=== PATIENT | female | born 1985 | race Caucasian/White ===

== ENCOUNTER → 2016-08-16 | Outpatient (CLI) | payer OTHER ==
--- NOTE | 2016-08-16 14:39 | XR ---
Cervical spine HISTORY: Neck pain 5 views of the cervical spine Correlation to prior spine 02 March 2015 Is no significant foraminal encroachment. Loss of normal lordosis may be due to muscle spasm. Cervica l vertebral bodies show preserved height and bone mineralization. Anterolisthesis grade 1 C2-3, C3-4 thought likely to be physiologic. Disc spaces and prevertebral soft tissues are normal. IMPRESSION: Loss of cervical lordosis.
== END | disposition home or self-care (01) ==
LOC: RADXRMAIN 14:00
PROVIDERS: ATTEND Family Medicine
DX: M43.8X2 Other specified deforming dorsopathies, cervical region (principal); M54.2 Cervicalgia
CPT/HCPCS: 72050

== ENCOUNTER → 2017-05-23 | Outpatient (CLI) | payer OTHER ==
--- NOTE | 2017-05-23 18:43 | EEG ---
ELECTROENCEPHALOGRAM REPORT DATE OF SERVICE: 05/23/2017. REASON FOR TESTING: Syncope. DESCRIPTION OF THE PROCEDURE: This EEG was performed using a 21 channel digital electroencephalograph, following international 10-20 system. DESCRIPTION OF THE RECORDING: From the beginning of the tracing, with patient's eyes closed, the background rhythm was mostly consisting of 9 Hz alpha frequency in the posterior occipital leads. No obvious asymmetry is seen. Photic stimulation was performed with a good driving response seen. No pathological waves were elicited. Rare movement artifacts are seen. Hyperventilation was not performed. Rare muscle artifacts are seen. The patient remains awake throughout the tracing. Rare sharp wave activity is seen. Her EKG lead showed a regular rate and rhythm. INTERPRETATION: This awake EEG is abnormal due to occasional sharp wave activity seen. No obvious generalized epileptiform discharges are seen. This could be consistent with a reduced seizure threshold. Clinical correlation is recommended. Thank you, Dr. Barrera for allowing me to participate in the care of your patient. If you have any questions, please feel free to contact me. KORY / IJN: [id number] /
--- NOTE | 2017-05-24 08:12 | USB ---
Reason for exam: clinical finding. History: Took hormonal contraceptives beginning at age 28. Indicated problem(s): pain in both breasts. Physical Findings: Nurse did not find any significant physical abnormalities on exam. US Breast BILAT Right breast ultrasound includes all four quadrants, the retroareolar region and axilla. Finding demonstrates no cystic or solid lesion seen. Left breast ultrasound includes all four quadrants, the retroareolar region and axilla. Finding demonstrates no cystic or solid lesion seen. These results were verbally communicated with the patient and result sheet given to the patient on 05/23/17. ASSESSMENT: Negative, BI-RAD 1 RECOMMENDATION: Routine screening mammogram of both breasts at age 39. Manage on a clinical basis with regard to left pain.
== END | disposition home or self-care (01) ==
LOC: RADECHMAIN 11:46
PROVIDERS: ATTEND Family Medicine
DX: N64.4 Mastodynia (principal); R94.31 Abnormal electrocardiogram [ECG] [EKG]; R00.2 Palpitations; R55 Syncope and collapse
CPT/HCPCS: 93270; 93271; 95816

== ENCOUNTER → 2017-07-27 | Outpatient (CLI) | payer OTHER ==
--- NOTE | 2017-07-27 13:04 | CONS ---
CONSULTATION DATE OF SERVICE: 07/27/2017 This 32-year-old lady has been evaluated in sleep center for significant excessive daytime sleepiness and multiple awakenings from sleep with witnessed episodes of stopped breathing during the sleep. HISTORY OF PRESENT ILLNESS/SLEEP WAKE EVALUATION: Patient usual sleep schedule from 10 p.m. until 6:30 a.m. She does have problem with the falling asleep, taking Xanax at bedtime and it helps her to fall asleep. No TV in bedroom. She usually sleeps on the stomach position with witnessed episodes of stopped breathing during the sleep. Awakenings from sleep with nocturia, restless legs, sweating, dry mouth up to 4 times at night. During the day, patient feels sleepiness. [place] Sleepiness Scale increased to 13. She may take naps up to 3 times a day which she could sleep all day. Usually she does not see any dreams during naps. No history of hypnagogic hallucinations, sleep paralysis, or cataplexy. PAST MEDICAL HISTORY: Positive for anxiety, back problems. PAST SURGICAL HISTORY: Cholecystectomy, tonsillectomy, partial hysterectomy. MEDICATIONS: Tizanidine, Xanax. SOCIAL HISTORY: Negative for smoking. Alcohol consumption occasional. REVIEW OF SYSTEMS: Multiple awakenings from sleep, sleepiness during the day. Patient increased her weight around 60 pounds for the last year. No fevers. No double vision. No recent chest pain. No shortness of breath. No abdominal pain. No bleeding episodes. No blood in urine. No seizure episodes. FAMILY HISTORY: Hypertension, heart problems, fibromyalgia, arthritis, asthma, sinus headaches, lung problems, cancer, diabetes, thyroid problems, restless legs. PHYSICAL EXAM: During physical exam, a lady without distress. VITAL SIGNS: BP 137/88, HR 74, RR 16, height 5 feet 1 inch, weight 206, BMI 37.7, temperature 97.8, oxygen saturation on room air 100%. HEENT: PERRLA, EOMI. Oropharynx, a short distance between soft palate and posterior pharyngeal wall. Small nasal passages. Retrognathia 2 mm. NECK: 13-1/2 inches in circumference. LUNGS: Clear to percussion and to auscultation. Good air exchange. No wheezing or rhonchi. HEART: S1, S2 regular. No murmurs, gallops, or rubs. ABDOMEN: Slightly obese. EXTREMITIES: No clubbing or cyanosis. OBSERVER ELECTRICAL PROSPECTING: Awake, alert, and oriented X3. Cranial nerves 2 to 7 intact. There is no fasciculation or atrophy. noted. No focal deficits observed. IMPRESSION: 1. Snoring witnessed episodes of stopped breathing during the sleep, multiple awakenings from sleep, sleepiness, obstructive sleep apnea-hypopnea syndrome. 2. Sleepiness. [place] Sleepiness Scale increased to 13. Patient takes naps several times a day. Differential diagnosis should include hypersomnia. 3. Obesity, BMI 37.7. Patient increased her weight around 70 pounds for the last year. 4. History of anxiety. 5. Back problems. 6. Status post cholecystectomy. 7. Status post tonsillectomy. 8. Status post partial hysterectomy. PLAN: 1. Polysomnography for evaluation of patient's breathing during sleep. 2. CPAP/BiPAP titration if sleep study confirms obstructive sleep apnea-hypopnea syndrome. 3. Preferable position during sleep on the side. 4. No driving if patient feels any sleepiness. 5. I will see patient for follow up visit to explain results of testing and following plan. 6. Multiple sleep latency test if sleep study will be negative for obstructive sleep apnea-hypopnea syndrome. Thank you very much for referring this patient for consultation. Sincerely, Bart Loomis MD, PhD, FAASM Diplomat of [place] [employer] [employer] [facility] [place] MMODL / DENIAN: [id number] /
== END ==
LOC: SLEEP 11:35
PROVIDERS: ATTEND Internal Medicine
DX: G47.33 Obstructive sleep apnea (adult) (pediatric) (principal); E66.9 Obesity, unspecified; F41.9 Anxiety disorder, unspecified; M79.89 Other specified soft tissue disorders; Z98.890 Other specified postprocedural states; Z90.49 Acquired absence of other specified parts of digestive tract; Z90.710 Acquired absence of both cervix and uterus; Z68.37 Body mass index [BMI] 37.0-37.9, adult; Z79.899 Other long term (current) drug therapy
CPT/HCPCS: 99211

== ENCOUNTER → 2017-08-08 | Outpatient (CLI) | payer OTHER ==
[2017-08-08 09:50] LABS: Basophils % (A) 1 %; Eosinophils # (A) 0.1 k/uL (0-0.7); Eosinophils % (A) 2 %; HCT 39.3 % (34.0-46.0); HGB 13.1 gm/dL (11.4-16.0); Lymphocytes # (A) 1.5 k/uL (1.0-4.8); Lymphocytes % (A) 33 %; MCH 30.1 pg (25.0-35.0); MCHC 33.3 g/dL (31.0-37.0); MCV 90.5 fL (80.0-100.0); Mean Platelet Volume 6.9; Monocytes # (A) 0.2 k/uL (0-1.0); Monocytes % (A) 4 %; Neutrophils # (A) 2.7 k/uL (1.3-7.7); Neutrophils % (A) 59 %; Platelet Count 351 k/uL (150-450); RBC 4.35 m/uL (3.80-5.40); RDW 12.7 % (11.5-15.5); WBC 4.6 k/uL (3.8-10.6)
[2017-08-08 10:17] LABS: ALT 21 U/L (9-52); AST 19 U/L (14-36); Albumin 4.3 g/dL (3.5-5.0); Alkaline Phosphatase 57 U/L (38-126); Anion Gap 12 mmol/L; Blood Urea Nitrogen 10 mg/dL (7-17); C Reactive Protein 5.9 mg/L (<10.0); Calcium 9.4 mg/dL (8.4-10.2); Carbon Dioxide 31 mmol/L (22-30); Chloride 104 mmol/L (98-107); Glucose 80 mg/dL (74-99); Sodium 147 mmol/L (137-145); Total Bilirubin 0.5 mg/dL (0.2-1.3); Total Protein 6.5 g/dL (6.3-8.2)
[2017-08-08 10:49] LABS: Erythrocyte Sedimentation Rate 7 mm/hr (0-20)
[2017-08-08 16:01] LABS: Rheumatoid Factor 7 IU/mL (0-15)
[2017-08-08 17:11] LABS: Vitamin D 25 Hydroxy 11.6 ng/mL (30.0-100.0)
== END | disposition home or self-care (01) ==
LOC: LABWHC1 09:05
PROVIDERS: ATTEND Nurse Practitioner Acute Care
DX: E55.9 Vitamin D deficiency, unspecified (principal); M13.0 Polyarthritis, unspecified
CPT/HCPCS: 36415; 80053; 82306; 82607; 84207; 85025; 85652; 86038; 86140; 86431

== ENCOUNTER → 2017-09-07 | Outpatient (CLI) | payer OTHER ==
--- NOTE | 2017-09-07 12:53 | SFUN ---
SLEEP CENTER FOLLOW UP NOTE DATE OF SERVICE: 09/07/2017. A 32-year-old lady who has been followed in Sleep Center to discuss results of the sleep studies and following plan. I discussed results of sleep studies with patient in detail. Polysomnogram did not show any significant abnormalities of respiration. Apnea-hypopnea index was only 0.4. Lowest oxygen level was 88.3% which is normal. Multiple sleep latency test which was done on the following day consisted from 5 naps. Patient fell asleep on all naps. Mean sleep latency short 7.4 minutes which indicate possible narcolepsy, although no sleep onset REM periods have been documented. Patient continued to have symptoms of excessive daytime sleepiness. [place] Sleepiness Scale today is 14. PRESENT MEDICATIONS: Xanax, TIZANIDINE, vitamin D, Fioricet. PHYSICAL EXAM: Patient in no distress. BP 128/89, HR 68, R 14, temperature 97.9, oxygen saturation at room air 99%. OROPHARYNX: Low position of soft palate. ABDOMEN: Slightly obese. Neck Supple, no JVD. Thyroid is not palpable. LUNGS Clear to percussion and to auscultation. Good air exchange. No wheezing or rhonchi. HEART S1, S2 regular. No murmurs, gallops, or rubs. EXTREMITIES No clubbing or cyanosis. TEMPERATURE CONTROL INSPECTOR Awake, alert, and oriented X3. Cranial nerves 2 to 7 intact. There is no fasciculation or atrophy. noted. No focal deficits observed. IMPRESSION: 1. No significant respiratory abnormalities by results of polysomnogram. 2. Multiple sleep latency test confirmed sleepiness. Differential diagnosis includes narcolepsy and hypersomnia. Patient continued to have symptoms of excessive daytime sleepiness during the day. 3. Obesity. 4. Mild snoring had been documented during the sleep study. 5. History of anxiety, on treatment with Xanax. 6. History of back problems. 7. Status post cholecystectomy. 8. Status post tonsillectomy. 9. Status post partial hysterectomy. PLAN: 1. Patient should be started on treatment with modafinil with titration of the dose to the minimally effective to prevent excessive daytime sleepiness. I would prefer that medication versus stimulants because stimulants may increase the risk for anxiety. Patient is already on treatment with Xanax. 2. Sleep hygiene with regular time in bed for least 8 hours. 3. No driving if feeling any sleepiness. 4. Watching and losing weight. Thank you for much for allowing me to participate in the management of your patient. Sincerely, Bart Loomis MD, PhD, FAASM Diplomat of [place] [employer] [place] [employer] Employment Coordinator of [facility] [place] KORY / SHELDON: [id number] /
== END | disposition home or self-care (01) ==
LOC: SLEEP 11:25
PROVIDERS: ATTEND Internal Medicine
DX: G47.10 Hypersomnia, unspecified (principal); E66.9 Obesity, unspecified; Z90.49 Acquired absence of other specified parts of digestive tract; Z90.89 Acquired absence of other organs; Z90.711 Acquired absence of uterus with remaining cervical stump; Z86.59 Personal history of other mental and behavioral disorders; Z79.899 Other long term (current) drug therapy

== ENCOUNTER → 2017-09-12 | Outpatient (CLI) | payer OTHER ==
--- NOTE | 2017-09-12 10:36 | MR ---
EXAMINATION TYPE: MR lumbar spine wo con DATE OF EXAM: 09/12/2017 COMPARISON: NONE HISTORY: Cervicalgia / Lumbago TECHNIQUE: T1 and T2 axial and sagittal images of the lumbar spine are submitted. FINDINGS: There is no abnormal signal seen within the visualized spinal cord or paraspinal soft tissu es. At L1-2 there is no disc herniation, canal stenosis, or foraminal encroachment. At L2-3 there is no disc herniation, canal stenosis, or foraminal encroachment At L3-4 there is no disc herniation, canal stenosis, or foraminal encroachment At L4-5 there is small focal central disc herniation with mild effacement of the thecal sac. Hypertro phic change of the facets. Neural foramina are patent. At L5-S1 there is degenerative disc disease and central broad-based disc bulging but no canal stenosi s or foraminal encroachment. Annular tear noted. IMPRESSION: 1. Degenerative disc disease L4-5 and L5-S1 with annular tear at both levels. 2. Small focal central disc herniation L4-L5 with mild effacement of thecal sac. 3. Mild disc bulging L5-S1 but no canal stenosis or foraminal encroachment. EXAMINATION TYPE: MR cervical spine wo con DATE OF EXAM: 09/12/2017 COMPARISON: NONE HISTORY: Cervicalgia / Lumbago TECHNIQUE: T1 sagittal and coronal, T2 sagittal, and gradient echo axial views of the cervical spine are submitted. FINDINGS: The cranial cervical junction is preserved. There is no abnormal signal seen within the sp inal cord or paraspinal soft tissues. At C2-3 there is no degenerative disc disease, disc herniation, canal stenosis or foraminal encroachm ent. At C3-4 there is no degenerative disc disease, disc herniation, canal stenosis or foraminal encroachm ent. At C4-5 there is no degenerative disc disease, disc herniation, canal stenosis or foraminal encroachm ent. At C5-6 there is no degenerative disc disease, disc herniation, canal stenosis or foraminal encroachm ent. At C6-7 there is no degenerative disc disease, disc herniation, canal stenosis or foraminal encroachm ent. At C7-T1 there is no degenerative disc disease, disc herniation, canal stenosis or foraminal encroach ment. IMPRESSION: 1. No abnormality noted.
--- NOTE | 2017-09-12 10:46 | MR ---
EXAMINATION TYPE: MR brain wo/w con DATE OF EXAM: 09/12/2017 COMPARISON: NONE HISTORY: headache, MS TECHNIQUE: Multiplanar, multisequence images of the brain and brainstem is performed without and with IV contras t, utilizing 8.5 mL intravenous Gadavist . FINDINGS: Diffusion weighted images demonstrate no evidence of a recent infarct or other diffusion ab normality. The ventricular system and cisternal spaces are normal in size and appearance. The brain volume is age appropriate. 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 The craniocervical junction appears within normal limits. Post contrast images demonstrate no abnormal enhancement. The dural venous sinuses appear patent. The visualized sinuses are clear and the globes are intact. WHITE MATTER: Artifact within the posterior fossa noted. No definite sizable area of abnormal signal seen within the visualized white matter. IMPRESSION: 1. No acute process.
== END | disposition home or self-care (01) ==
LOC: RADMRIMAIN 08:46
PROVIDERS: ATTEND Psychiatry & Neurology Neurology
DX: M51.26 Other intervertebral disc displacement, lumbar region (principal); M51.37 Other intervertebral disc degeneration, lumbosacral region; M54.2 Cervicalgia; R51 Headache
CPT/HCPCS: 70553; 72141; 72148; A9581

== ENCOUNTER → 2017-11-09 | Outpatient (CLI) | payer OTHER | END | disposition home or self-care (01) | LOC: LABWHC1 11:09 | PROVIDERS: ATTEND Nurse Practitioner Acute Care | DX: I49.9 Cardiac arrhythmia, unspecified (principal) | CPT/HCPCS: 36415; 93005 ==

== ENCOUNTER → 2017-12-07 | Outpatient (CLI) | payer OTHER ==
--- NOTE | 2017-12-07 17:25 | PN ---
PROGRESS NOTE DATE OF SERVICE: 12/07/2017 This patient is a 32-year-old lady who has been followed in the sleep center for treatment of significant excessive daytime sleepiness, possible narcolepsy. Patient was started on treatment with modafinil and we slowly adjusted the dose to 300 mg in the morning and then to 400 mg in the morning, but patient's condition did not improve with this medication; according to her, she feels any even worse than without that medication. Subsequently she stopped taking modafinil. At present her [place] Sleepiness Scale is 15. MEDICATIONS: Other medications include: 1. Fioricet. 2. DXR. 3. Xanax 3 times a day. 4. Tizanidine. 5. Vitamin D supplement. PHYSICAL EXAMINATION: GENERAL A pleasant patient in no distress. VITAL SIGNS: BP 134/99, HR 82, RR 16, height 5 feet 1 inch, weight 208, BMI 39.3, temperature 97.2, oxygen saturation at room air 97%. HEENT: PERRLA, EOMI. Evaluation of oropharynx showed tongue protrudes midline; low position of soft palate. NECK: Supple. No JVD. Thyroid is not palpable. LUNGS: Clear to percussion and to auscultation. Good air exchange. No wheezing or rhonchi. HEART: S1, S2 regular. No murmurs, gallops or rubs. ABDOMEN: Soft and nontender. Bowel sounds are present. No organomegaly appreciated. EXTREMITIES : No clubbing or cyanosis. STATION CHIEF: Awake, alert, and oriented X3. Cranial nerves 2 to 7 intact. There is no fasciculation or atrophy. noted. No focal deficits observed. IMPRESSION: 1. Differential diagnosis between narcolepsy and idiopathic hypersomnia. Mean sleep latency test showed 7.4 minutes of sleep latency. Treatment with modafinil was not successful. 2. History of anxiety. 3. Back problems. 4. Status post cholecystectomy. 5. Status post tonsillectomy. 6. Status post partial hysterectomy. PLAN: 1. Patient will be started on treatment with Adderall. We will start with a small dose, 5 mg 2 times a day. 2. Sleep hygiene with regular time in bed for at least 8 hours. 3. No driving if feeling any sleepiness. 4. Daytime naps permitted. 5. HLA profile for narcolepsy. Thank you very much for allowing me to participate in the management of your patient. Sincerely, Bart Loomis MD, PhD, FAASM Diplomat of [employer] Senior Mechanical Designer of [facility] [place] KORY / SHELDON: [id number] /
== END | disposition home or self-care (01) ==
LOC: SLEEP 16:05
PROVIDERS: ATTEND Internal Medicine
DX: F41.9 Anxiety disorder, unspecified (principal); Z90.89 Acquired absence of other organs; Z90.711 Acquired absence of uterus with remaining cervical stump; Z90.49 Acquired absence of other specified parts of digestive tract; Z79.899 Other long term (current) drug therapy

== ENCOUNTER → 2017-12-27 | Outpatient (CLI) | payer OTHER ==
[2017-12-27 15:52] LABS: T4, Free (Free Thyroxine) 0.71 ng/dL (0.78-2.19)
[2017-12-27 18:47] LABS: Rheumatoid Factor 9 IU/mL (0-15)
[2017-12-27 20:44] LABS: Anti-DNA, DS unit <1.0 IU/mL; DNA Double-Stranded NEGATIVE (NEGATIVE)
[2017-12-27 22:54] LABS: Hemoglobin A1C 4.9 % (4.0-6.0)
== END | disposition home or self-care (01) ==
LOC: LABWHC1 12:57
PROVIDERS: ATTEND Family Medicine
DX: R53.83 Other fatigue (principal); M79.9 Soft tissue disorder, unspecified; F41.1 Generalized anxiety disorder; E16.1 Other hypoglycemia
CPT/HCPCS: 36415; 83036; 84439; 84443; 85652; 86038; 86225; 86431

== ENCOUNTER 2018-02-08 07:04 | Day surgery (SDC) | payer OTHER ==
[2018-02-05 13:26] VITALS: BMI 43.4
[~2018-02-08 07:04] MED LIST: LACTATED RINGERS 1,000 ML IV SCH; SODIUM CHLORIDE 0.9% 1,000 ML IV SCH
[2018-02-08 07:41] LABS: Basophils % (A) 1 %; Eosinophils # (A) 0.2 k/uL (0-0.7); Eosinophils % (A) 2 %; HCT 38.7 % (34.0-46.0); Lymphocytes # (A) 1.9 k/uL (1.0-4.8); Lymphocytes % (A) 29 %; MCH 30.8 pg (25.0-35.0); MCHC 33.6 g/dL (31.0-37.0); MCV 91.9 fL (80.0-100.0); Mean Platelet Volume 6.3; Monocytes # (A) 0.3 k/uL (0-1.0); Monocytes % (A) 5 %; Neutrophils % (A) 62 %; Platelet Count 322 k/uL (150-450); RBC 4.22 m/uL (3.80-5.40); RDW 13.1 % (11.5-15.5); WBC 6.5 k/uL (3.8-10.6)
[2018-02-08 07:53] LABS: Anion Gap 9 mmol/L; Blood Urea Nitrogen 14 mg/dL (7-17); Calcium 9.6 mg/dL (8.4-10.2); Carbon Dioxide 25 mmol/L (22-30); Chloride 108 mmol/L (98-107); Glucose 95 mg/dL (74-99); Potassium 4.2 mmol/L (3.5-5.1); Sodium 142 mmol/L (137-145)
[2018-02-08] MEDS ORDERED: MIDAZOLAM 2 MG/2 ML VIAL ONE (10:51)
[2018-02-08] MEDS ORDERED: IV FLUID CONTINUATION 900 ML IV ONE (10:51)
[2018-02-08] MEDS ORDERED: LIDOCAINE 1% INJ 10MG/ML (20 ML MDV) ONE ×2 (10:51→11:13)
[2018-02-08] MEDS ORDERED: PROPOFOL 10 MG/ML 20 ML VIAL IV ONE (10:51)
[2018-02-08] MEDS ORDERED: fentaNYL (PF) 50 MCG/ML 2 ML AMP ONE (10:51)
[2018-02-08] MEDS ORDERED: LIDOCAINE 1% INJ 10MG/ML (20 ML MDV) SQ ONE ×2 (11:19→13:33)
[2018-02-08] MEDS ORDERED: ceFAZolin IN SWFI 2 GM/20 ML SYRINGE IVP STA (13:10)
--- NOTE | 2018-02-08 13:50 | P.PCN ---
Preoperative Diagnosis: Loop monitor implant Primary physicians: Dr. Barrera Vise Hand: Dr. Morataya Indication: Recurrent syncope, undiagnosed, normal tilt table test, diagnostic EP study did not reveal any supraventricular or ventricular arrhythmias. Prolongation of the HV interval with atrial access stimulation at a drive train of 600 ms without Isuprel. Prolongation of the HV interval from a baseline of 50 ms up to 93 ms noted with atrial extra stimulation at a drive train of 600 ms Discussed with patient. Discussed with . Consent obtained for implantation of loop monitor Patient was brought to the EP lab in a fasting state. Written informed consent was obtained prior to the procedure. The left pectoral area was prepped and draped per protocol. Intravenous antibiotic was administered preoperatively. A subcutaneous Loop monitor was implanted successfully and the wound was closed per protocol. The device was programmed to detect significant cash- arrhythmic and tachy-arrhythmic events, per protocol. Device and programming details: Standard reprogramming for tachybradycardia arrhythmias Plan Stop Zanaflex. One case report of AV block described with use of Zanaflex Anesthesia: MAC Condition: stable
[2018-02-08] MEDS ORDERED: ACETAMINOPHEN IV (For NPO) 1,000 MG in EMPTY BAG 1 BAG IVPB ONE (13:57)
[2018-02-08] MEDS ORDERED: HYDROcodone/APAP 5-325MG 1 EACH TAB PO PRN (13:57)
[2018-02-08] MEDS ORDERED: ACETAMINOPHEN TAB 325 MG TAB PO PRN (13:57)
--- NOTE | 2018-02-08 14:21 | P.PCN ---
Preoperative Diagnosis: Diagnosis Recurrent syncope Twelve-lead ECG shows sinus rhythm normal AL narrow QRS normal ST segments normal QT interval no epsilon waves no delta waves normal ST segments Tilt table test per protocol Baseline blood pressure 114/75 mmHg Baseline heart rate 79 beats a minute Patient was tilted upright at an angle of 70 per protocoland a change in blood pressure mild increase in heart rate to 100 beats a minute representing a 20 point increase from baseline No evidence for neurocardiogenic syncope Impression Possible mild orthostatic intolerance No evidence for neurocardiogenic syncope
[2018-02-08] MEDS: ALPRAZolam 0.5 MG TAB PO SCH ×2 (18:07→23:51)
[2018-02-08 20:03] VITALS: RESP 18
--- NOTE | 2018-02-08 21:03 | PCN ---
PROCEDURE NOTE Isabell Banerjee is a 32-year-old female who has a history of recurrent loss of consciousness, which can occur when she is sitting or lying down and these are fairly prolonged episodes. She also has a history of dizzy spells with sweating and pounding in the chest consistent with vasovagal syncope. First she underwent a tilt table test study which did not show any evidence for vasovagal syncope. There was a minor increase in heart rate upon standing, but did not meet criteria for postural tachycardia syndrome. Subsequently, she was brought to the EP lab and a diagnostic EP study was performed. Under conscious sedation, a 3 venous sheaths placed in the right femoral vein with sterile precautions, the catheters were placed in the right heart in the high right atrium, His bundle and RV and later in the coronary sinus. Sinus cycle length 818 milliseconds, IN interval 150 milliseconds, QRS 91 milliseconds, QT 395 milliseconds, baseline AH interval of 56 milliseconds, HV interval 50 milliseconds. Sinus node recovery times at 600, 500 and 400 milliseconds were 1436, 1443 and 1149 milliseconds. Corresponding recovery times were mildly prolonged at a pacing cycle length of 600 milliseconds. No delta waves noted. AV node Wenckebach block 310 milliseconds. There was suggestion of slow pathway conduction but no SVT was induced. AV Wenckebach block 430 milliseconds. Retrograde conduction midline and decremental. The VERP 604/460 milliseconds. Atrial extra stimulation was performed and with a drive train of 600 milliseconds with single extrastimuli. Left bundle branch block aberrancy was noted. The baseline HV interval was about 50 milliseconds during atrial extra stimulation but with development of left bundle branch block apparent beat, the HV interval prolonged up to 93 milliseconds. This was a repeated finding. Thereafter, Isuprel was started wide open at 2 mcg. AV node Wenckebach block improved to 200 milliseconds. There was evidence for slow pathway conduction at a paced cycle length of 240 milliseconds, but with the development of AV node Wenckebach block at 210 milliseconds. VA Wenckebach block was at 200 milliseconds. AV node ERP 450/240 milliseconds. Atrial extra stimulation up to double extrastimuli was performed in the high right atrium. Atrial extra stimulation up to double extra stimuli performed of the coronary sinus. Ventricular extra stimulation up to double extra stimuli performed in the ventricle. No SVT was induced. With burst stimulation from the high right atrium, on Isuprel, right bundle branch block aberrancy was noted as well as the left bundle branch block aberrancy, but no SVT was induced. Para Hisian pacing was performed and a louie response was noted. The prolongation of the HV interval did not occur on Isuprel with atrial extra stimulation. All catheters were then removed and preparations were made for implantation of a loop monitor. The current medications were investigated and it appears that there was a case report of an AV block associated with the use of Zanaflex. The patient takes Zanaflex 2 mg 3 times a day currently and this will be discontinued. This was also discussed with her primary care physician Dr. Héctor Barrera. RESULT: 1. Diagnostic EP study revealing normal baseline measurements. 2. Mildly prolonged sinus node recovery times at a pacing cycle length of 600 milliseconds. 3. Prolongation of the HV interval from a baseline of 50 milliseconds to 93 milliseconds with atrial extra stimulation (with development of left bundle branch block aberrancy). 4. No inducible SVT or ventricular tachycardia. 5. Evidence for slow pathway conduction without development of SVT. PLAN: Proceed with implantation of loop monitor. MMODL / IJN: [id number] /
--- NOTE | 2018-02-09 08:24 | P.DS ---
Providers Attending physician: Benjamín Huitron Primary care physician: Héctor Brooks Hospital Course: Patient is doing well. She has no chest discomfort dizziness lightheadedness other than the little discomfort in the area of the device implant. Yesterday she underwent implantation of a loop monitor following diagnoses EP study. The tilt table test showed mild orthostatic intolerance Vitals are stable, 114/70 mmHg respirations normal pulse rate in the 80s and she is afebrile 97.9F Breath sounds are clear no rhonchi no crackles Heart sounds are normal Groin is healed well Impression History of pounding and palpitations History of loss of consciousness No inducible supraventricular arrhythmias Prolongation of the HV interval with development of a left bundle branch block pattern see with atrial extra stimulation. Baseline HV interval 50 ms. Maximum HV interval with atrial extra stimulation was 93 ms Plan Discontinue Zanaflex. No driving for at least 6 months since the last episode of loss of consciousness, follow-up in the device clinic in 5 days. May be discharged home today Plan - Discharge Summary Discharge Rx Participant: No New Discharge Prescriptions: Discontinued tiZANidine [Zanaflex] 2 mg PO TID No Action Albuterol Sulfate [Proair Hfa] 2 puff INHALATION DIRECTED PRN PRN Reason: asthma ALPRAZolam [Xanax] 0.5 mg PO TID Discharge Medication List Albuterol Sulfate [Proair Hfa] 2 puff INHALATION DIRECTED PRN 05/19/14 [ History] ALPRAZolam [Xanax] 0.5 mg PO TID 02/05/18 [History] Follow up Appointment(s)/Referral(s): Héctor Barrera DO [Primary Care Provider] - 2 Weeks Benjamín Huitron MD [STAFF PHYSICIAN] - 1 Week (Device clinic follow-up in 5 days Follow-up with Dr. Morataya in 4 months) Activity/Diet/Wound Care/Special Instructions: Post EP study - Ablation instructions 1. Keep access sites dry for 2 days. 2. No heavy lifting or straining for 2 days. 3. Avoid bending the hips repeatedly for 2 days. 4. You may go up and down stairs slowly Call if the following is noted 1. Bleeding, increasing swelling or pain at the access sites. 2. Increasing chest discomfort, especially upon taking a deep breath. 3. Increasing shortness of breath, at rest or with exertion. 4. Undue cough / phlegm 5. Difficulty or pain while swallowing. 6. Pain or change in color in the extremities. 7. Fever, chills, rigors. 8. Increasing headache or neurologic symptoms. 9. Dizziness, fainting, palpitations No driving for 6 months Discontinue Zanaflex Discharge Disposition: HOME SELF-CARE
[2018-02-09] MEDS: ALPRAZolam 0.5 MG TAB PO SCH (09:54)
[2018-02-09 10:57] VITALS: BP 127/89; PULSE 90; TEMP 98.2
== END 2018-02-09 10:10 | disposition home or self-care (01) ==
LOC: CATHEP 07:04 → 3SCARD 13:43 → CATHEP 02-09 10:10
PROVIDERS: ATTEND Internal Medicine Clinical Cardiac Electrophysiology
DX: R55 Syncope and collapse (principal); Z79.899 Other long term (current) drug therapy; Z82.49 Family history of ischemic heart disease and other diseases of the circulatory system; Z72.0 Tobacco use; I44.7 Left bundle-branch block, unspecified
CPT/HCPCS: 93620; 33282; 93660; 80048; 85025; C1894; C1769 ×2; C1730 ×2; C1764; J2250; J2001; J3010; J2704; J0690

== ENCOUNTER → 2018-06-08 | Outpatient (CLI) | payer OTHER ==
--- NOTE | 2018-06-08 13:15 | CT ---
EXAMINATION TYPE: CT abdomen pelvis wo/w con DATE OF EXAM: 06/08/2018 COMPARISON: None HISTORY: Right lower quadrant pain CT DLP: 2844 mGycm Automated exposure control for dose reduction was used. CONTRAST: CT scan of the abdomen pelvis is performed , patient injected with 100 mL of Isovue 300. FINDINGS- LUNG BASES- No significant abnormality is appreciated. LIVER/GB-surgical clips in the gallbladder fossa.. PANCREAS- No gross abnormality is seen. SPLEEN- No gross abnormality is seen. ADRENALS- No gross abnormality is seen. KIDNEYS/BLADDER-there is a punctate mid pole right renal calculus.. BOWEL- no bowel dilatation. Normal appendix. LYMPH NODES- No greater than 1cm abdominal or pelvic lymph nodes areappreciated. OSSEOUS STRUCTURES-hypertrophic and degenerative change of the spine. Suspected disc protrusion at L4 -L5. OTHER- is a 4.3 cm soft tissue mass in the right adnexa. Uterus is not seen. This could represent a adnexal cyst. Ovarian or paraovarian cyst in the differential diagnosis pelvic ultrasound is recommen ded. IMPRESSION- 1. Within the pelvis there is a 4.3 cm soft tissue mass in the right adnexa. Previous removal of the uterus is suggested. Recommend correlation with pelvic ultrasound to assess for paraovarian or ovaria n cyst. There is also is soft tissue fullness within the left hemipelvis which is felt to represent a probable residual ovary correlate with the surgical history. Suspect there may be a 1.5 cm additiona l left ovarian cyst. 2. There is a nonobstructing 2 mm mid pole right renal calculus. Additional punctate calcification in the region of the pelvis on the right is unable be confirmed within the ureter. 3. Disc protrusion L4-L5.
== END | disposition home or self-care (01) ==
LOC: RADCTMAIN 08:50
PROVIDERS: ATTEND Family Medicine
DX: N20.0 Calculus of kidney (principal); R19.09 Other intra-abdominal and pelvic swelling, mass and lump; K57.00 Diverticulitis of small intestine with perforation and abscess without bleeding
CPT/HCPCS: 74178; Q9967

== ENCOUNTER → 2018-06-15 | Outpatient (CLI) | payer OTHER ==
[2018-06-15 09:45] LABS: HCT 42.1 % (34.0-46.0); HGB 13.7 gm/dL (11.4-16.0); MCHC 32.6 g/dL (31.0-37.0); MCV 92.1 fL (80.0-100.0); Mean Platelet Volume 6.5; Platelet Count 426 k/uL (150-450); RBC 4.57 m/uL (3.80-5.40); WBC 8.7 k/uL (3.8-10.6)
[2018-06-15 09:54] LABS: Anion Gap 8 mmol/L; Blood Urea Nitrogen 20 mg/dL (7-17); Carbon Dioxide 30 mmol/L (22-30); Chloride 104 mmol/L (98-107); Glucose 88 mg/dL (74-99); Potassium 5.7 mmol/L (3.5-5.1); Sodium 142 mmol/L (137-145)
== END | disposition home or self-care (01) ==
LOC: LABPAT 08:57
PROVIDERS: ATTEND Internal Medicine Clinical Cardiac Electrophysiology
DX: Z01.812 Encounter for preprocedural laboratory examination (principal); R55 Syncope and collapse; R94.31 Abnormal electrocardiogram [ECG] [EKG]
CPT/HCPCS: 36415; 80051; 82565; 82947; 84520; 85027

== ENCOUNTER → 2018-06-22 | Outpatient (CLI) | payer OTHER ==
--- NOTE | 2018-06-22 16:02 | US ---
EXAMINATION TYPE: US pelvis complete transvag DATE OF EXAM: 06/22/2018 COMPARISON: CT 06/08/2018 CLINICAL HISTORY: N83.291 OVARIAN CYST. hx of partial hysterectomy x 2 years ago, still has both ovar ies. CT showed Rt adnexal mass. TECHNIQUE: Transvaginal (TV) and Transabdominal (TA) . Transabdominal sonographic images of the pel vis were acquired. Transvaginal sonographic images were medically necessary to better assess the fol lowing anatomy: Ovaries Date of LMP: Partial hysterectomy EXAM MEASUREMENTS: Right Ovary: 3.0 x 2.0 x 2.0 cm 1. Uterus: Surgically absent 2. Endometrium: Surgically absent 3. Right Ovary: wnl, follicles seen 4. Left Ovary: Obscured by overlying bowel gas 5. Bilateral Adnexa: In right adnexa, fluid filled tubular structure seen adjacent to right ovary, m easuring around 5.6 cm. 6. Posterior cul-de-sac: no free fluid IMPRESSION: Findings may represent hydrosalpinx in the right adnexal region.
== END | disposition home or self-care (01) ==
LOC: RADUSWWP 13:55
PROVIDERS: ATTEND Family Medicine
DX: N83.291 Other ovarian cyst, right side (principal)
CPT/HCPCS: 76830; 76856

== ENCOUNTER → 2018-06-25 | Outpatient (CLI) | payer OTHER ==
[2018-06-26 02:25] LABS: Anion Gap 10.7 mmol/L (4.00-12.00); Calcium 9.5 mg/dL (8.7-10.3); Carbon Dioxide 27.3 mmol/L (21.6-31.8); Potassium 4.8 mmol/L (3.5-5.5)
== END ==
LOC: LABWHC1 16:21
PROVIDERS: ATTEND Nurse Practitioner Adult Health
DX: E87.5 Hyperkalemia (principal)
CPT/HCPCS: 36415; 80048

== ENCOUNTER 2018-07-03 10:53 | Day surgery (SDC) | payer OTHER ==
[2018-07-02 08:45] VITALS: BMI 47.2
[~2018-07-03 10:53] MED LIST changes: +HYDROmorphone 0.5 MG/0.5 ML SYRINGE IVP PRN; -LACTATED RINGERS 1,000 ML IV SCH; +MIDAZOLAM (PF) 2 MG/2 ML VIAL IV PRN; -SODIUM CHLORIDE 0.9% 1,000 ML IV SCH
[2018-07-03 11:48] LABS: Basophils % (A) 1 %; Eosinophils # (A) 0.7 k/uL (0-0.7); Eosinophils % (A) 10 %; HGB 13.5 gm/dL (11.4-16.0); Lymphocytes # (A) 1.6 k/uL (1.0-4.8); Lymphocytes % (A) 24 %; MCH 30.4 pg (25.0-35.0); MCHC 33.8 g/dL (31.0-37.0); MCV 89.7 fL (80.0-100.0); Mean Platelet Volume 7.6; Monocytes # (A) 0.4 k/uL (0-1.0); Monocytes % (A) 6 %; Neutrophils % (A) 59 %; Platelet Count 376 k/uL (150-450); RBC 4.46 m/uL (3.80-5.40); RDW 13.7 % (11.5-15.5); WBC 6.7 k/uL (3.8-10.6)
[2018-07-03 11:50] LABS: Anion Gap 7 mmol/L; Blood Urea Nitrogen 16 mg/dL (7-17); Calcium 9.6 mg/dL (8.4-10.2); Carbon Dioxide 28 mmol/L (22-30); Chloride 106 mmol/L (98-107); Glucose 98 mg/dL (74-99); Potassium 4.5 mmol/L (3.5-5.1); Sodium 141 mmol/L (137-145)
[2018-07-03] MEDS ORDERED: ISOPROTERENOL 250 MCG/1.25 ML SYR IV ONE (11:54)
[2018-07-03] MEDS ORDERED: MIDAZOLAM 2 MG/2 ML VIAL ONE (11:54)
[2018-07-03] MEDS ORDERED: fentaNYL (PF) 50 MCG/ML 2 ML AMP ONE (11:54)
[2018-07-03] MEDS ORDERED: HEPARIN SODIUM,PORCINE 5,000 UNIT/ML 1 ML VIAL ONE (11:54)
[2018-07-03] MEDS ORDERED: LIDOCAINE 1% INJ 10MG/ML (20 ML MDV) SQ ONE (12:29)
[2018-07-03] MEDS ORDERED: IV FLUID CONTINUATION 900 ML IV ONE (12:30)
[2018-07-03] MEDS ORDERED: ACETAMINOPHEN TAB 325 MG TAB PO PRN (14:06)
[2018-07-03] MEDS ORDERED: HYDROcodone/APAP 5-325MG 1 EACH TAB PO PRN (14:06)
[2018-07-03] MEDS ORDERED: ACETAMINOPHEN IV (For NPO) 1,000 MG in EMPTY BAG 1 BAG IVPB ONE (15:15)
[2018-07-03] MEDS: SODIUM CHLORIDE 0.9% 1,000 ML IV SCH ×2 (16:29→20:09)
[2018-07-03] MEDS: LACTATED RINGERS 1,000 ML IV SCH ×2 (16:29→20:09)
--- NOTE | 2018-07-03 17:26 | PCN ---
PROCEDURE NOTE Isabell Banerjee is a 33-year-old female who has had a history of recurrent syncope noon while sitting. This was about several months back. She underwent diagnostic EP study which revealed prolongation of the HV interval in association with development of left bundle branch block with atrial extra stimulation. She was on Zanaflex and there was 1 case report of the Zanaflex causing prolongation of the HV interval. This drug was stopped. The loop monitor was implanted. Following that, there has been no documentation of AV block on loop monitoring. She has not had any episodes of syncope either. She was brought in for repeat diagnostic EP study to evaluate the conduction system once again in followup. DESCRIPTION OF PROCEDURE: Patient was brought to the EP lab in a fasting state. Written informed consent was obtained prior to the procedure. The right groin was prepped and draped as per protocol. Three venous sheaths were placed the right femoral vein. Via these, diagnostic catheters were placed in the high right atrium, His bundle area, RV and later in the coronary sinus. A diagnostic EP study was performed with and without Isuprel. Sinus cycle length 867 milliseconds, NH interval 135 milliseconds, QRS 93 milliseconds, QT 391 milliseconds. Baseline AH interval 56 milliseconds, baseline HV interval 43 milliseconds. Sinus node recovery times at pacing cycle length of 600, 500 and 400 milliseconds was 1200, 1198 and 1080 milliseconds. Corresponding corrected sinus node recovery times within normal limits. The slow pathway conduction was noted at a paced cycle length of 300 milliseconds. AV block at 250 milliseconds, VA Wenckebach block 370 milliseconds. No inducible SVT. VA ERP 600 back/470 milliseconds. With atrial extra stimulation, prolongation of the HV interval was noted mostly with development of a left bundle branch block morphology on the QRS, but sometimes even with narrow QRS. The HIS bundle catheter was then repositioned carefully to get a large HIS signal to avoid a misdiagnosis of the split Hiss signal. The HV interval was 43 milliseconds. Once again, atrial extra stimulation was performed at a paced cycle length of 600 milliseconds and then at a drive train again of 500 milliseconds. There was prolongation of the HV interval to 58 milliseconds with atrial extra stimulation. With atrial extra stimulation with a narrow QRS, but subsequently at the next extra stimulation, there was sudden increase in the HV interval to 101 milliseconds. This was a consistent finding of either progressive prolongation of the HV interval or intermittent sudden increase in the HV interval with atrial extra stimulation without Isuprel. Most times this was associated with the left bundle branch block conduction occasionally with a narrow QRS. Isuprel was then started. There was evidence of slow pathway conduction at a paced cycle length of 250 milliseconds from the high right atrium, but no AVNRT was induced. Pacing was once again performed from the coronary sinus and the catheter from the right ventricle was placed in the coronary sinus. There was no evidence for SVT, both on and off Isuprel. All catheters were then removed and patient was transferred back to telemetry. RESULT: Abnormal increase in HV conduction interval with atrial extra stimulation with a sudden increase in the HV interval with atrial extra stimulation. Mostly with development of a left bundle branch block, but sometimes even with a narrow QRS. PLAN: 1. Discussion with the patient regarding the permanent pacing. 2. Evaluating for systemic and cardiac causes of isolated HV interval prolongation. KORY / SHELDON: [id number] /
[2018-07-03] MEDS ORDERED: GABAPENTIN 100 MG CAP PO PRN (18:32)
[2018-07-03] MEDS ORDERED: ALBUTEROL NEBULIZED 2.5 MG/3 ML INHALATION PRN (18:32)
[2018-07-03] MEDS ORDERED: DICYCLOMINE 20 MG TAB PO PRN (18:32)
[2018-07-03] MEDS ORDERED: SUMAtriptan SUCCINATE 25 MG TAB PO PRN (18:32)
[2018-07-03] MEDS: ALPRAZolam 0.5 MG TAB PO SCH (20:03)
--- NOTE | 2018-07-04 07:53 | P.DS ---
Providers Attending physician: Benjamín Huitron Primary care physician: [facility] Course: Patient is resting comfortably in bed. She has been ambulating around in the hallways without any problems. She has no chest pain dizziness or palpitations. Right groin is healed well no hematoma no swelling On examination she is afebrile 98.3F pulse rate in the 70s normal respirations blood pressure 114/70 mmHg No hematoma in the groin no swelling Normal breath sounds S1-S2 is normal no murmurs No lower extremity edema Increased BMI Impression History of recurrent syncope Previous EP study showed abnormal HV interval response to atrial extra stimulation Zanaflex was discontinued Follow-up EP study shows normalization of Baseline HV interval but with atrial extra stimulation HV interval prolongation is still quite significant 100 ms Suggest Discharge home today Outpatient cardiac MRI If this is normal proceed with permanent pacing Discussed with the patient Patient Condition at Discharge: Stable Plan - Discharge Summary Discharge Rx Participant: No New Discharge Prescriptions: No Action Albuterol Sulfate [Proair Hfa] 2 puff INHALATION Q6H PRN PRN Reason: asthma ALPRAZolam [Xanax] 0.5 mg PO TID Gabapentin [Neurontin] 100 mg PO TID PRN PRN Reason: Pain Lisinopril-Hctz 10-12.5 mg [Zestoretic 10-12.5] 1 tab PO DAILY Lisinopril [Zestril] 10 mg PO DAILY Meloxicam 7.5 mg PO DAILY SUMAtriptan SUCCINATE [Imitrex] 25 mg PO ONCE PRN PRN Reason: Migraine Headache Dicyclomine [Bentyl] 20 mg PO TID PRN PRN Reason: abdominal pain Discharge Medication List Albuterol Sulfate [Proair Hfa] 2 puff INHALATION Q6H PRN 05/19/14 [History] ALPRAZolam [Xanax] 0.5 mg PO TID 02/05/18 [History] Gabapentin [Neurontin] 100 mg PO TID PRN 06/12/18 [History] Lisinopril [Zestril] 10 mg PO DAILY 06/12/18 [History] Lisinopril-Hctz 10-12.5 mg [Zestoretic 10-12.5] 1 tab PO DAILY 06/12/18 [History] Meloxicam 7.5 mg PO DAILY 06/12/18 [History] Dicyclomine [Bentyl] 20 mg PO TID PRN 07/02/18 [History] SUMAtriptan SUCCINATE [Imitrex] 25 mg PO ONCE PRN 07/02/18 [History] Follow up Appointment(s)/Referral(s): Benjamín Huitron MD [STAFF PHYSICIAN] - 2 Weeks (groin check ) Activity/Diet/Wound Care/Special Instructions: Post EP study - Ablation instructions 1. Keep access sites dry for 2 days. 2. No heavy lifting or straining for 2 days. 3. Avoid bending the hips repeatedly for 2 days. 4. You may go up and down stairs slowly Call if the following is noted 1. Bleeding, increasing swelling or pain at the access sites. 2. Increasing chest discomfort, especially upon taking a deep breath. 3. Increasing shortness of breath, at rest or with exertion. 4. Undue cough / phlegm 5. Difficulty or pain while swallowing. 6. Pain or change in color in the extremities. 7. Fever, chills, rigors. 8. Increasing headache or neurologic symptoms. 9. Dizziness, fainting, palpitations
[2018-07-04 07:54] VITALS: PULSE 85; RESP 18; TEMP 98.2
[2018-07-04 08:42] VITALS: BP 119/87
[2018-07-04] MEDS: ALPRAZolam 0.5 MG TAB PO SCH (08:44)
[2018-07-04] MEDS ORDERED: LISINOPRIL 10 MG TAB PO SCH (09:00)
[2018-07-04] MEDS ORDERED: LISINOPRIL-HCTZ 10-12.5 MG 1 EACH TAB PO SCH (09:00)
[2018-07-04] MEDS ORDERED: MELOXICAM 7.5 MG TAB PO SCH (09:00)
== END 2018-07-04 12:10 | disposition home or self-care (01) ==
LOC: CATHEP 10:53 → 1SOBS 13:55 → CATHEP 07-04 12:10
PROVIDERS: ATTEND Internal Medicine Clinical Cardiac Electrophysiology
DX: I44.7 Left bundle-branch block, unspecified (principal); J45.909 Unspecified asthma, uncomplicated; I10 Essential (primary) hypertension; Q79.6 Ehlers-Danlos syndromes; M79.7 Fibromyalgia; G43.909 Migraine, unspecified, not intractable, without status migrainosus; Z79.899 Other long term (current) drug therapy; Z79.1 Long term (current) use of non-steroidal anti-inflammatories (NSAID)
CPT/HCPCS: 93623; 93620; 80048; 85025; 81025; C1769 ×3; C1894; C1730; J2250; J1644; J2001; J3010

== ENCOUNTER → 2018-07-16 | Outpatient (CLI) | payer OTHER ==
[2018-07-16 16:44] VITALS: BP 125/91; PULSE 111; TEMP 98.5; BMI 44.4
--- NOTE | 2018-07-20 11:20 | P.HPBAR ---
Bariatric H&P - History & Physicial H&P Date: 07/16/18 History & Physicial: Visit/CC: sleeve consult Patient initial contact: Initial weight: 108.318 kg Initial weight in pounds: 238.80 Height: 5 ft 1.5 in Initial BMI: 44.4 Last weight: Current weight: 108.318 kg Current weight in pounds: 238.80 Current BMI: 44.4 [place] body weight (based on NIH guidelines): 48.761 kg Excess body weight loss: 0.0% The patient is a 33 year-old F who presents for Bariatric Assessment. Patient presents today for new patient consultation. Patient's BMI is 44. She has had lifetime problems obesity. She is requesting sleeve gastrectomy. Past Medical History Past Medical History: Asthma, Fibromyalgia, Hypertension, Seizure Disorder Additional Past Medical History / Comment(s): last seizure approx. 2017, migraine headaches, jose c danlos syndrome, intermittent abd. pain possibly related to either ovarian cyst or cyst on kidney, see Dr Huitron H & P, 07/16/18 pt states due to misfiring electrical conduction in heart pathway she needs to have an MRI of heart (to be performed at [facility]) and will then require a pacemaker to be implanted by Dr. Huitron History of Any Multi-Drug Resistant Organisms: None Reported Past Surgical History: Cholecystectomy, Hysterectomy, Tonsillectomy Additional Past Surgical History / Comment(s): loop recorder implant 2017 Past Anesthesia/Blood Transfusion Reactions: No Reported Reaction Past Psychological History: Anxiety Smoking Status: Never smoker Past Alcohol Use History: Occasional Past Drug Use History: None Reported - Past Family History Mother Family Medical History: Cancer Additional Family Medical History / Comment(s): uterine Surgical - Exam Vital Signs Temp Pulse BP 98.5 F 111 H 125/91 07/16/18 16:01 07/16/18 16:01 07/16/18 16:01 BMI 44 - General well developed, well nourished, no distress - Eyes PERRL - ENT normal pinna - Neck no masses - Respiratory normal expansion - Cardiovascular Rhythm: regular - Abdomen Abdomen: soft, non tender Bariatric Assessment & Plan Plan: Morbid obesity. Patient was counseled on sleeve gastrectomy. She seems a good understanding the risks and benefits. We discussed the issues of gastric staple line bleeding, perforation or obstruction. Patient will be scheduled for EGD. She'll follow-up in the bariatric clinic next month. Bariatric Checklist Checklist: Plan: Checklist: EGD: 1. Hiatal hernia: 2. H. Pylori: HgbA1c: Vitamin D: Smoking: Never smoker Primary care physician referral: darwin alvarenga Psychiatry clearance: Cardiology clearance: Sleep study: Diet journal: VTE risk score: VTE risk level: Rehab needs at discharge:
== END ==
LOC: BARWHC3 14:57
PROVIDERS: ATTEND Surgery
DX: E66.01 Morbid (severe) obesity due to excess calories (principal); Z68.41 Body mass index [BMI] 40.0-44.9, adult; Z90.49 Acquired absence of other specified parts of digestive tract; Z90.710 Acquired absence of both cervix and uterus
CPT/HCPCS: 99211

== ENCOUNTER → 2018-07-16 | Outpatient (CLI) | payer OTHER ==
[2018-07-16 17:27] LABS: HCT 39.7 % (34.0-46.0); HGB 13.7 gm/dL (11.4-16.0); MCH 30.2 pg (25.0-35.0); MCHC 34.5 g/dL (31.0-37.0); MCV 87.5 fL (80.0-100.0); Mean Platelet Volume 6.7; Platelet Count 522 k/uL (150-450); RBC 4.53 m/uL (3.80-5.40); RDW 13.6 % (11.5-15.5); WBC 6.8 k/uL (3.8-10.6)
[2018-07-16 23:16] LABS: Albumin 4.8 g/dL (3.80-4.90); Albumin/Globulin Ratio 2.82 (1.60-3.17); Anion Gap 13.7 mmol/L (4.00-12.00); Calcium 9.9 mg/dL (8.7-10.3); Carbon Dioxide 25.3 mmol/L (21.6-31.8); Globulin 1.7 g/dL (1.6-3.3); LDL Cholesterol,Calculated 136.6 mg/dL (0.0-131.0); Potassium 3.7 mmol/L (3.5-5.5); Total Bilirubin 0.4 mg/dL (0.2-1.2); Total Protein 6.5 g/dL (6.2-8.2); VLDL Calculation 27.4 mg/dL (5.00-40.00)
[2018-07-16 23:17] LABS: Iron Saturation 17.2 (12.00-45.00)
[2018-07-16 23:24] LABS: Vitamin D 25 Hydroxy 21.2 ng/mL (30.0-100.0)
== END | disposition home or self-care (01) ==
LOC: LABWHC1 16:50
PROVIDERS: ATTEND Surgery
DX: E66.01 Morbid (severe) obesity due to excess calories (principal); D50.9 Iron deficiency anemia, unspecified; E44.0 Moderate protein-calorie malnutrition; E55.9 Vitamin D deficiency, unspecified; Z68.38 Body mass index [BMI] 38.0-38.9, adult
CPT/HCPCS: 36415; 80053; 80061; 82306; 82607; 82728; 83540; 83550; 84425; 84443; 85027

== ENCOUNTER 2018-10-18 16:26 | Observation (INO) | payer OTHER ==
[2018-10-18] MEDS ORDERED: METOCLOPRAMIDE 5 MG/ML 2 ML VIAL IVP STA (17:20)
[2018-10-18] MEDS ORDERED: MORPHINE SULFATE 2 MG/ML SYRINGE IVP STA (17:20)
--- NOTE | 2018-10-18 17:24 | ED ---
General Adult HPI - General Chief complaint: Neuro Symptoms/Deficit Stated complaint: Headache Time Seen by Provider: 10/18/18 17:02 Source: patient, RN notes reviewed Mode of arrival: wheelchair Limitations: no limitations - History of Present Illness Initial comments: Patient is a pleasant 33-year-old female presenting to the emergency department with concerns regarding left sided odd sensation. Onset of symptoms was around 12:30. Patient states she also has some difficulty with movement. Patient states she was able to walk. Patient believes her arm is worse than her leg. Patient does complain of headache. Patient does have chronic headaches. Onset of headache was around a week ago. Headache was moderate and then became somewhat severe over several hours. Headache is currently rated 7/10. Patient also complains of on sensation left side of the face. No history of problems with sensory or weakness previously even with associated headaches. Patient denies any trauma. - Related Data Home Medications Medication Instructions Recorded Confirmed Albuterol Sulfate [Proair Hfa] 2 puff INHALATION RT-QID PRN 05/19/14 10/18/18 Lisinopril [Zestril] 10 mg PO DAILY 06/12/18 10/18/18 Lisinopril-Hctz 10-12.5 mg 1 tab PO DAILY 06/12/18 10/18/18 [Zestoretic 10-12.5] Meloxicam 7.5 mg PO DAILY 06/12/18 10/18/18 Dicyclomine [Bentyl] 20 mg PO TID PRN 07/02/18 10/18/18 Nebivolol HCl [Bystolic] 5 mg PO DAILY 10/18/18 10/18/18 Phentermine HCl [Adipex-P] 37.5 mg PO DAILY 10/18/18 10/18/18 SUMAtriptan SUCCINATE [Imitrex] 100 mg PO DAILY PRN 10/18/18 10/18/18 Sertraline [Zoloft] 50 mg PO DAILY 10/18/18 10/18/18 hydrOXYzine HCL [Atarax] 100 mg PO TID PRN 10/18/18 10/18/18 Allergies Allergy/AdvReac Type Severity Reaction Status Date / Time No Known Allergies Allergy Verified 10/18/18 17:18 Review of Systems ROS Statement: Those systems with pertinent positive or pertinent negative responses have been documented in the HPI. ROS Other: All systems not noted in ROS Statement are negative. Constitutional: Denies: fever Eyes: Reports: other (Mild photophobia). Denies: eye pain ENT: Denies: ear pain Respiratory: Denies: cough, dyspnea Cardiovascular: Denies: chest pain Endocrine: Denies: fatigue Gastrointestinal: Reports: nausea. Denies: abdominal pain, vomiting Genitourinary: Denies: dysuria Musculoskeletal: Denies: back pain Skin: Denies: rash Neurological: Reports: as per HPI, headache, weakness, numbness Past Medical History Past Medical History: Asthma, Fibromyalgia, Hypertension, Seizure Disorder Additional Past Medical History / Comment(s): last seizure approx. 2017, migraine headaches, jose c danlos syndrome, intermittent abd. pain possibly related to either ovarian cyst or cyst on kidney, see Dr Huitron H & P, 07/16/18 pt states due to misfiring electrical conduction in heart pathway she needs to have an MRI of heart (to be performed at [facility]) and will then require a pacemaker to be implanted by Dr. Huitron History of Any Multi-Drug Resistant Organisms: None Reported Past Surgical History: Cholecystectomy, Hysterectomy, Tonsillectomy Additional Past Surgical History / Comment(s): loop recorder implant 2017 Past Anesthesia/Blood Transfusion Reactions: No Reported Reaction Past Psychological History: Anxiety Smoking Status: Never smoker Past Alcohol Use History: Occasional Past Drug Use History: None Reported - Past Family History Mother Family Medical History: Cancer Additional Family Medical History / Comment(s): uterine General Exam Limitations: no limitations General appearance: alert, in no apparent distress Head exam: Present: atraumatic Eye exam: Present: normal appearance, PERRL, EOMI. Absent: nystagmus ENT exam: Present: normal oropharynx Neck exam: Present: normal inspection Respiratory exam: Present: normal lung sounds bilaterally Cardiovascular Exam: Present: regular rate, normal rhythm GI/Abdominal exam: Present: soft. Absent: tenderness Extremities exam: Present: normal inspection Neurological exam: Present: alert, oriented X3, CN II-XII intact Expanded Neurological exam: Present: protecting the airway Patient oriented to: Present: person, place, time Speech: Present: fluid speech Cranial nerves: EOM's Intact: Normal, Facial Sensation: Abnormal Left Sensory exam: Upper Extremity Light Touch: Abnormal Left, Lower Extremity Light Touch: Abnormal Left Motor strength exam: RUE: 5, LUE: 3, RLE: 5, LLE: 2/1 Eye Response: (4) open spontaneously Motor Response: (6) obeys commands Verbal Response: (5) oriented Psychiatric exam: Present: normal affect, normal mood Skin exam: Present: normal color Course Vital Signs 10/18/18 10/18/18 10/18/18 16:54 17:28 18:03 Temperature 97.7 F 97.7 F Pulse Rate 100 86 71 Respiratory 18 18 18 Rate Blood Pressure 156/110 124/65 118/51 O2 Sat by Pulse 99 99 96 Oximetry - Reevaluation(s) Reevaluation #1: 10/18/18 17:27 Case was discussed with Dr. Bhandari who agrees patient is not a TPA candidate. Patient is not a candidate secondary to onset of symptoms now 5 hours ago. He agrees that symptoms are likely more related to a complex migraine rather than CVA. He will review CTA and call back. 10/18/18 17:39 Case was discussed again with Dr. Bhandari who did review CT and CTA and reveals no acute abnormality. He does recommend admission with MRI and neurology evaluation and aspirin. EKG Findings - EKG Comments: EKG Findings:: Normal sinus rhythm 89. [place] 114. QRS 76. QT 358. QTC 435. N ormal axis. Normal QRS. No acute ST change. Medical Decision Making - Medical Decision Making Patient reevaluated and significantly improved. Headache is rated 2/10. Patient states other symptoms are near resolved. No gross deficits of strength on exam. - Lab Data Result diagrams: 10/18/18 18:07 Lab Results 10/18/18 Range/Units 18:07 WBC 11.8 H (3.8-10.6) k/uL RBC 4.64 (3.80-5.40) m/uL Hgb 13.7 (11.4-16.0) gm/dL Hct 39.7 (34.0-46.0) % MCV 85.5 (80.0-100.0) fL MCH 29.5 (25.0-35.0) pg MCHC 34.5 (31.0-37.0) g/dL RDW 14.0 (11.5-15.5) % Plt Count 501 H (150-450) k/uL Neutrophils % 78 % Lymphocytes % 17 % Monocytes % 3 % Eosinophils % 2 % Basophils % 0 % Neutrophils # 9.1 H (1.3-7.7) k/uL Lymphocytes # 2.0 (1.0-4.8) k/uL Monocytes # 0.3 (0-1.0) k/uL Eosinophils # 0.2 (0-0.7) k/uL Basophils # 0.0 (0-0.2) k/uL - Radiology Data Radiology results: report reviewed (Computed tomography scan of the brain shows no acute process. CTA of the head and neck reveals a diminutive appearance to the intracranial arteries as well as distal internal carotid arteries. no focal hemodynamic stenosis. As discussed with Dr. Bhandari's report was no acute process.) Disposition Clinical Impression: Headache, Left-sided weakness Disposition: ADMITTED IP TO THIS HOSP Is patient prescribed a controlled substance at d/c from ED?: No Referrals: Héctor Barrera DO [Primary Care Provider] - 1-2 days Decision Time: 18:25
--- NOTE | 2018-10-18 17:36 | CT ---
EXAMINATION TYPE: CT brain wo con for TPA DATE OF EXAM: 10/18/2018 COMPARISON: 09/26/2014 HISTORY: Left sided weakness. CT DLP: 1088 mGycm Automated exposure control for dose reduction was used. FINDINGS: Ventricles have normal size. There is no mass effect nor midline shift. There is no sign of intracran ial hemorrhage. The calvarium is intact. Sella turcica appears normal. IMPRESSION: Negative CT scan of the brain. No change.
--- NOTE | 2018-10-18 17:54 | CT ---
EXAMINATION TYPE: CT angio head neck DATE OF EXAM: 10/18/2018 HISTORY: Left sided weakness COMPARISON: Left side weakness. CT DLP: 544.7 mGycm. Automated Exposure Control for Dose Reduction was Utilized. TECHNIQUE: CTA scan of the neck is performed with IV Contrast, patient injected with 50 mL of Isovue 370, axial images are obtained, coronal and sagittal reformatted images are reviewed. Three-D recons tructed images are created on an independent workstation and reviewed. FINDINGS: There is normal branching pattern of the great vessels on the aortic arch. There is bilateral arteria l flow in the subclavian arteries. There is arterial flow in the common internal and external carotid arteries bilaterally. There is bilateral arterial flow in the vertebral arteries. Left vertebral art miki is larger than the right. The basilar artery appears to fill almost entirely from the left side. There are diminutive bilateral distal internal carotid arteries. There is arterial flow in the anterior middle and posterior cerebral arteries. There is arterial flow in the vertebrobasilar artery system. There is normal contrast opacification of the venous sinuses. There is no evidence of intracranial aneurysm or neovascularity. The anterior middle and posterior ce rebral arteries are somewhat diminutive. IMPRESSION: There is diminutive appearance of the intracranial arteries as well as the distal internal carotid ar teries. It is not clear if this is related to vasculitis or developmental abnormality. No evidence of focal hemodynamic stenosis.
[2018-10-18 18:21] LABS: Basophils % (A) 0 %; Eosinophils # (A) 0.2 k/uL (0-0.7); Eosinophils % (A) 2 %; HCT 39.7 % (34.0-46.0); HGB 13.7 gm/dL (11.4-16.0); Lymphocytes % (A) 17 %; MCH 29.5 pg (25.0-35.0); MCHC 34.5 g/dL (31.0-37.0); MCV 85.5 fL (80.0-100.0); Mean Platelet Volume 6.9; Monocytes # (A) 0.3 k/uL (0-1.0); Monocytes % (A) 3 %; Neutrophils # (A) 9.1 k/uL (1.3-7.7); Neutrophils % (A) 78 %; Platelet Count 501 k/uL (150-450); RBC 4.64 m/uL (3.80-5.40); WBC 11.8 k/uL (3.8-10.6)
[2018-10-18] MEDS ORDERED: ASPIRIN 325 MG TAB PO STA (18:26)
[2018-10-18 18:27] LABS: ALT 22 U/L (9-52); AST 20 U/L (14-36); African American GFR (CKD) >90 (>60 ml/min/1.73 sqM); Albumin 4.2 g/dL (3.5-5.0); Alkaline Phosphatase 95 U/L (38-126); Anion Gap 10 mmol/L; Blood Urea Nitrogen 9 mg/dL (7-17); Calcium 9.6 mg/dL (8.4-10.2); Carbon Dioxide 23 mmol/L (22-30); Chloride 105 mmol/L (98-107); Glucose 114 mg/dL (74-99); Potassium 4.2 mmol/L (3.5-5.1); Sodium 138 mmol/L (137-145); Total Bilirubin 0.5 mg/dL (0.2-1.3); Total Protein 6.9 g/dL (6.3-8.2)
[2018-10-18 18:31] LABS: INR 0.9 (<1.2); Partial Thromboplastin Time 21.5 sec (22.0-30.0); Prothrombin Time 9.7 sec (9.0-12.0)
[2018-10-18] MEDS: SODIUM CHLORIDE 0.9% 1,000 ML IV SCH (18:47)
--- NOTE | 2018-10-18 18:54 | XR ---
EXAMINATION TYPE: XR chest 2V DATE OF EXAM: 10/18/2018 COMPARISON: NONE HISTORY: Left-sided weakness TECHNIQUE: Frontal and lateral views of the chest are obtained. FINDINGS: Heart and mediastinum are normal. Lungs are clear. Diaphragm is normal. Bony thorax appear s normal. IMPRESSION: Normal chest.
[2018-10-18 19:57] VITALS: BMI 44.9
[2018-10-18] MEDS ORDERED: ALBUTEROL NEBULIZED 2.5 MG/3 ML INHALATION PRN (20:44)
[2018-10-18] MEDS ORDERED: DICYCLOMINE 20 MG TAB PO PRN (20:44)
[2018-10-18] MEDS ORDERED: hydrOXYzine HCL 25 MG TAB PO PRN (20:44)
[2018-10-18] MEDS ORDERED: KETOROLAC 30 MG/ML 1 ML VIAL IVP PRN (20:50)
[2018-10-18] MEDS ORDERED: PROCHLORPERAZINE 5 MG TAB PO PRN (20:52)
[2018-10-18] MEDS ORDERED: SUMAtriptan SUCCINATE 6 MG/0.5 ML VIAL SQ PRN (20:53)
[2018-10-18] MEDS ORDERED: diphenhydrAMINE 25 MG CAP PO PRN (20:55)
[2018-10-18] MEDS ORDERED: diphenhydrAMINE 25 MG CAP PO SCH (22:00)
[2018-10-19] MEDS ORDERED: PROCHLORPERAZINE 5 MG TAB PO PRN (01:56)
[2018-10-19 04:08] LABS: Cholesterol 256 mg/dL (<200); HDL Cholesterol 51 mg/dL (40-60); LDL Cholesterol,Calculated 148 mg/dL (0-99); Triglycerides 285 mg/dL (<150)
[2018-10-19] MEDS: MELOXICAM 7.5 MG TAB PO SCH (08:55)
[2018-10-19] MEDS: LISINOPRIL 10 MG TAB PO SCH (08:55)
[2018-10-19] MEDS: SODIUM CHLORIDE 0.9% 1,000 ML IV SCH ×2 (08:55→17:32)
[2018-10-19] MEDS: SERTRALINE 50 MG TAB PO SCH (08:56)
[2018-10-19] MEDS: LISINOPRIL-HCTZ 10-12.5 MG 1 EACH TAB PO SCH (08:57)
[2018-10-19] MEDS: NEBIVOLOL 5 MG TAB PO SCH (08:58)
[2018-10-19] MEDS: BUTALB/APAP/CAFF 50-325-40MG TAB PO PRN ×2 (13:40→19:44)
--- NOTE | 2018-10-19 13:42 | P.HPIM ---
History of Present Illness H&P Date: 10/19/18 33 years old female with past medical history of asthma, hype fibromyalgia, hypertension, seizure disorder, migraine headache, and ehler danlos syndrome comes in to the ER yesterday with the intermittent episodes of associated with left arm and leg numbness and weakness. According to the patient weakness lasted for 30 minutes before resolving completely. The headache was on the left side to begin with associated with photophobia and nausea. The headache was on the left side radiating to the back of the neck . He she also endorses more than 8 episodes of headache in the past month and she takes around 6 tabs of ibuprofen in a day when she has a headache. Patient denies any seizure episodes currently last seizure was a few years ago. And has been off seizure medication. The characteristic of the seizures more absent like. The headache improved with the a concoction given in the ER. He can also endorses him the new onset right-sided headache since this morning. She is getting worked up for tachycardia associated with passing out episodes by Dr. Desai and had a loop recorder placed in February 2018. Patient denies any history of PE or DVT. Patient denies any chest pain, shortness of breath, swelling in the lower extremities, passing out spells. CT head and CT was done in the ER to rule out stroke patient was not a TPA candidate. MRI has been ordered and neurology consult is in place Review of Systems Constitutional: Denies chills, Denies fever, Denies lethargy, Denies malaise, Denies poor appetite, Denies weakness, Denies weight loss Eyes: denies decreased vision, denies diplopia, denies discharge, denies pain Ears: deny: decreased hearing Ears, nose, mouth and throat: Denies dental pain, Denies headache, Denies nasal discharge, Denies nose pain Cardiovascular: Denies chest pain, Denies decreased exercise tolerance, Denies edema, Denies high blood pressure, Denies irregular heart beat, Denies palpitations, Denies paroxysmal nocturnal dyspnea, Denies rapid heart beat, Denies shortness of breath Respiratory: Denies congestion, Denies cough, Denies cough with sputum, Denies dyspnea, Denies home oxygen, Denies wheezing Gastrointestinal: Denies abdominal pain, Denies change in bowel habits, Denies coffee ground emesis, Denies early satiety, Denies excessive gas, Denies heartburn, Denies hematemesis, Denies hematochezia, Denies loss of appetite, Denies nausea, Denies vomiting Genitourinary: Denies dysuria, Denies flank pain, Denies kidney stones, Denies menorrhagia, Denies urgency, Denies urinary frequency Musculoskeletal: Denies gait dysfunction, Denies limitation of motion, Denies morning stiffness, Denies muscle cramps Integumentary: Denies rash, Denies wounds, Denies brittle nails, Denies change in hair/nails, Denies darkening of skin Neurological: Denies balance difficulties, Denies change in speech, Denies double vision, Denies gait dysfunction, Denies loss of vision, endorses motor disturbance resolved, endorses numbness resolved, Denies paralysis, Denies paresthesias, Denies seizures Psychiatric: Denies anxiety, Denies depression Endocrine: Denies excessive sweating, Denies excessive thirst, Denies high blood sugars, Denies palpitations Hematologic/Lymphatic: Denies easy bruising, Denies lymphadenopathy Past Medical History Past Medical History: Asthma, Fibromyalgia, Hypertension, Seizure Disorder Additional Past Medical History / Comment(s): last seizure approx. 2017, migraine headaches, jose c danlos syndrome, intermittent abd. pain possibly related to either ovarian cyst or cyst on kidney, pt states due to misfiring electrical conduction in heart pathway she needs to have an MRI of heart (to be performed at [facility]) has loop recorder that will stay in for 4 years. Will then require a pacemaker to be implanted by Dr. Huitron in the furture. History of Any Multi-Drug Resistant Organisms: None Reported Past Surgical History: Cholecystectomy, Hysterectomy, Tonsillectomy Additional Past Surgical History / Comment(s): loop recorder implant 2017 Past Anesthesia/Blood Transfusion Reactions: No Reported Reaction Past Psychological History: Anxiety Smoking Status: Never smoker Past Alcohol Use History: Occasional Past Drug Use History: None Reported - Past Family History Mother Family Medical History: Cancer Additional Family Medical History / Comment(s): uterine Medications and Allergies Home Medications Medication Instructions Recorded Confirmed Type Albuterol Sulfate [Proair Hfa] 2 puff INHALATION RT-QID PRN 05/19/14 10/18/18 History Lisinopril [Zestril] 10 mg PO DAILY 06/12/18 10/18/18 History Lisinopril-Hctz 10-12.5 mg 1 tab PO DAILY 06/12/18 10/18/18 History [Zestoretic 10-12.5] Meloxicam 7.5 mg PO DAILY 06/12/18 10/18/18 History Dicyclomine [Bentyl] 20 mg PO TID PRN 07/02/18 10/18/18 History Nebivolol HCl [Bystolic] 5 mg PO DAILY 10/18/18 10/18/18 History Phentermine HCl [Adipex-P] 37.5 mg PO DAILY 10/18/18 10/18/18 History SUMAtriptan SUCCINATE [Imitrex] 100 mg PO DAILY PRN 10/18/18 10/18/18 History Sertraline [Zoloft] 50 mg PO DAILY 10/18/18 10/18/18 History hydrOXYzine HCL [Atarax] 100 mg PO TID PRN 10/18/18 10/18/18 History Allergies Allergy/AdvReac Type Severity Reaction Status Date / Time No Known Allergies Allergy Verified 10/18/18 17:18 Physical Exam Vitals: Vital Signs Temp Pulse Pulse Resp BP BP Pulse Ox 10/19/18 08:24 95 10/19/18 08:00 97.4 F L 81 128/77 95 10/19/18 05:22 98.1 F 97 17 118/75 95 10/18/18 23:00 98.1 F 78 16 132/82 98 10/18/18 19:33 97.9 F 80 16 134/88 99 10/18/18 18:49 77 18 133/97 97 10/18/18 18:03 71 18 118/51 96 10/18/18 17:28 97.7 F 86 18 124/65 99 10/18/18 16:54 97.7 F 100 18 156/110 99 Intake and Output 10/18/18 10/19/18 10/19/18 22:59 06:59 14:59 Intake Total 400 120 Balance 400 120 Intake: Intake, IV Titration 400 Amount Sodium Chloride 0.9% 1, 400 000 ml @ 100 mls/hr IV . Q10H [facility] Rx#:[id number] Oral 120 Other: Voiding Method Toilet Toilet # Voids 2 Weight 120.202 kg 117.3 kg - Constitutional General appearance: cooperative, no acute distress, obese - EENT Eyes: anicteric sclerae, PERRLA, normal appearance ENT: hearing grossly normal - Neck Neck: no lymphadenopathy, normal ROM, no other, no rigidity, no stridor, no thyromegaly - Respiratory Respiratory: bilateral: CTA, negative: diminished, dullness, rales, rhonchi - Cardiovascular Rhythm: regular Heart sounds: normal: S1, S2 Abnormal Heart Sounds: no systolic murmur, no diastolic murmur, no rub, no S3 Gallop, no S4 Gallop, no click, no other - Gastrointestinal General gastrointestinal: normal bowel sounds, soft - Integumentary Integumentary: no rash - Neurologic Neurologic: CNII-XII intact, positive for left arm drift. 5/5 power in bilateral lower extremities no sensory deficit noted. [id number] test was negative. Reflexes are normal bilaterally normal coordination - Musculoskeletal Musculoskeletal: gait normal, strength equal bilaterally - Psychiatric Psychiatric: A&O x's 3, appropriate affect Results CBC & Chem 7: 10/18/18 18:07 10/18/18 18:07 Labs: Abnormal Lab Results - Last 24 Hours (Table) 10/18/18 10/18/18 10/18/18 Range/Units 18:07 18:07 18:07 WBC 11.8 H (3.8-10.6) k/uL Plt Count 501 H (150-450) k/uL Neutrophils # 9.1 H (1.3-7.7) k/uL APTT 21.5 L (22.0-30.0) sec Glucose 114 H (74-99) mg/dL Triglycerides (<150) mg/dL Cholesterol (<200) mg/dL LDL Cholesterol, Calc (0-99) mg/dL 10/18/18 Range/Units 18:07 WBC (3.8-10.6) k/uL Plt Count (150-450) k/uL Neutrophils # (1.3-7.7) k/uL APTT (22.0-30.0) sec Glucose (74-99) mg/dL Triglycerides 285 H (<150) mg/dL Cholesterol 256 H (<200) mg/dL LDL Cholesterol, Calc 148 H (0-99) mg/dL Thrombosis Risk Factor Assmnt - DVT/VTE Prophylaxis DVT/VTE Prophylaxis: Pharmacologic Prophylaxis ordered - Choose All That Apply Each Factor Represents 1 point: Obesity (BMI >25) Other Risk Factors: No Thrombosis Risk Factor Assessment Total Risk Factor Score: 1 Thrombosis Risk Factor Assessment Level: Low Risk Assessment and Plan Plan: #1 Intractable migraine with left-sided weakness likely complex migraine but rule out stroke. CT head and CTA negative. MRI pending. Neurology evaluation pending continue Fioricet as needed. Toradol Benadryl and Compazine can be given as needed. Neuro checks every shift #2 hyperlipidemia LDL 148 low-cholesterol diet reinforced . #3 hypertension patient is currently on 4 antihypertensive. Continue Bystolic, lisinopril, hydrochlorothiazide. Blood pressure stable. no titration of antihypertensive needed #4 depression continue sertraline 50 mg by mouth daily #5 History of seizure disorder no recent episodes of seizure. #6 Ehler danlos syndrome asymptomatic #7 CODE STATUS full code
--- NOTE | 2018-10-19 17:04 | MR ---
EXAMINATION TYPE: MR brain wo con DATE OF EXAM: 10/19/2018 COMPARISON: 09/12/2017 HISTORY: Headache, syncope, lt side weakness Standard multiplanar, multisequence MRI departmental protocol Multiplanar, multisequence images of the brain were acquired. Diffusion weighted imaging was performe d. FINDINGS: Ventricles of normal size. There is no mass effect nor midline shift. There is no evidence of intracranial hemorrhage. There is no evidence of cortical infarct. Cristina-white matter structures mcgovern ve fairly normal signal pattern. There is no evidence of cerebral edema. Brainstem is intact. Corpus callosum appears normal. Sella turcica appears normal. There is minimal mucosal thickening in the inf erior maxillary sinuses. IMPRESSION: Negative MR scan of the brain. No change compared to old exam.
[2018-10-19] MEDS: ASPIRIN 325 MG TAB PO SCH (17:32)
[2018-10-20 05:13] VITALS: RESP 12
[2018-10-20] MEDS: SODIUM CHLORIDE 0.9% 1,000 ML IV SCH ×2 (08:00→08:11)
[2018-10-20] MEDS: NEBIVOLOL 5 MG TAB PO SCH (08:10)
[2018-10-20] MEDS: ASPIRIN 325 MG TAB PO SCH (08:10)
[2018-10-20] MEDS: LISINOPRIL-HCTZ 10-12.5 MG 1 EACH TAB PO SCH (08:10)
[2018-10-20] MEDS: SERTRALINE 50 MG TAB PO SCH (08:10)
[2018-10-20] MEDS: LISINOPRIL 10 MG TAB PO SCH (08:10)
[2018-10-20] MEDS: MELOXICAM 7.5 MG TAB PO SCH (08:11)
[2018-10-20] MEDS ORDERED: TOPIRAMATE 25 MG TAB PO SCH ×2 (09:00→21:00)
--- NOTE | 2018-10-20 10:11 | P.DS ---
Providers Date of admission: 10/18/18 18:33 Attending physician: Neisha Nava MD Consults: 10/18/18 18:26 Consult Physician Urgent Consulting Provider: Zac Mcpherson Consult Reason/Comments: l sided weakness Do you want consulting provider notified?: Yes Primary care physician: Héctor [place] [facility] Course: This is 83 years old female with multiple medical problems presents to the hospital with stroke like symptoms which felt to be related to complex migraine patient was kept for observation and MRI was ordered to rule out any ischemic changes which turned to be negative and patient was reassured that this is complex migraine symptoms resolved completely patient was back at baseline her neuro exam was entirely normal and patient was up ambulating in the room when her own at her baseline mental status patient requested to be going home on furosemide and I provided her with 20 tablets to be followed by her primary care physician and possible to failure to neurology for management of her complex migraine patient felt stable from the medical standpoint and was discharged in stable condition Plan - Discharge Summary Discharge Rx Participant: No New Discharge Prescriptions: No Action Albuterol Sulfate [Proair Hfa] 2 puff INHALATION RT-QID PRN PRN Reason: Shortness Of Breath Lisinopril-Hctz 10-12.5 mg [Zestoretic 10-12.5] 1 tab PO DAILY Lisinopril [Zestril] 10 mg PO DAILY Meloxicam 7.5 mg PO DAILY Dicyclomine [Bentyl] 20 mg PO TID PRN PRN Reason: abdominal pain hydrOXYzine HCL [Atarax] 100 mg PO TID PRN PRN Reason: Anxiety Sertraline [Zoloft] 50 mg PO DAILY SUMAtriptan SUCCINATE [Imitrex] 100 mg PO DAILY PRN PRN Reason: Migraine Headache Phentermine HCl [Adipex-P] 37.5 mg PO DAILY Nebivolol HCl [Bystolic] 5 mg PO DAILY Discharge Medication List Albuterol Sulfate [Proair Hfa] 2 puff INHALATION RT-QID PRN 05/19/14 [History] Lisinopril [Zestril] 10 mg PO DAILY 06/12/18 [History] Lisinopril-Hctz 10-12.5 mg [Zestoretic 10-12.5] 1 tab PO DAILY 06/12/18 [History] Meloxicam 7.5 mg PO DAILY 06/12/18 [History] Dicyclomine [Bentyl] 20 mg PO TID PRN 07/02/18 [History] Nebivolol HCl [Bystolic] 5 mg PO DAILY 10/18/18 [History] Phentermine HCl [Adipex-P] 37.5 mg PO DAILY 10/18/18 [History] SUMAtriptan SUCCINATE [Imitrex] 100 mg PO DAILY PRN 10/18/18 [History] Sertraline [Zoloft] 50 mg PO DAILY 10/18/18 [History] hydrOXYzine HCL [Atarax] 100 mg PO TID PRN 10/18/18 [History] Follow up Appointment(s)/Referral(s): Héctor Barrera DO [Primary Care Provider] - 1-2 days
[2018-10-20 11:29] VITALS: BP 120/81; PULSE 65; TEMP 98.5
--- NOTE | 2018-10-20 12:04 | CONS ---
CONSULTATION DATE OF CONSULTATION: 10/19/2018 HISTORY OF PRESENT ILLNESS: Thank you for allowing me to evaluate Isabell Banerjee who is a 33-year-old right- handed white female who presented to [facility] on 10/18/2018 for evaluation of headache and left-sided symptoms. The patient states the headache developed on Monday (3 days ago) and was present upon awakening. She characterized the headache as a left- sided pressure/pulsating sensation with associated nausea but no vomiting, photophobia, phonophobia, and reduction in function as a result of the headache. She took ibuprofen 600 mg on Monday, Monday, which did provide some benefit, and yesterday went to her mother's house where she states things went "downhill". She states she became hot and took a bath to cool down. She put a cool washcloth over her eyes and states that her left side started going "tingly" involving the face, arm and leg simultaneously. She states her tongue felt swollen and family felt that her speech was slurred. She states there was a vertiginous sensation, but denied associated diplopia, difficulty chewing/swallowing, or facial droop. She states her left side felt weak, although she was still able to walk, she states she had difficulty feeling the pressure of her foot on the ground when taking steps. She never had similar symptoms in the past. She denies previous history of stroke. The patient has a long history of migraine dating back to her teenage years. She states she is currently having more than 8 migrainous headaches per month. She states she used to see Neurology who provided her oral medications (she cannot recollect the names), occipital nerve blocks and were discussing lidocaine injections which she states her primary care physician was concerned about and she stopped following with them after this. She states she has never been on a daily medication for headache prevention. She is not currently on control pills. On an outpatient basis, the patient also has Imitrex available, she states she gets 7 tablets per month and typically takes all of these. She states she will use ibuprofen for less severe headaches and if the headache involves nausea, she will go to Imitrex. At this time, the patient states the left-sided symptoms, vertigo and dysarthria have completely resolved and lasted 6 to 8 hours. She states the headache has shifted from the left to now being present on the right, but is less severe than it previously was, and she is able to function better at this time. She states the medications being provided during this hospitalization including Toradol and antiemetics have been providing benefit. The patient apparently also has a history of recurrent syncope and has a loop recorder in place. She also reports a history of seizures, but states she has not had one in the past year and claims to have never been placed on anticonvulsant medication. She characterizes her seizures as "staring spells". ALLERGIES: No known drug allergies. HOME MEDICATIONS: Zoloft, Imitrex 100 mg p.r.n., Adipex, Bystolic, Mobic, Zestoretic, Zestril, Bentyl, ProAir, and Atarax. The patient is not maintained on control pills. PAST MEDICAL HISTORY: Hypertension, asthma, hyperlipidemia, fibromyalgia, recurrent syncope, migraine, reported seizures, Tavia-Danlos syndrome, depression, and obesity. The patient denies previous history of DVT/PE, but states she has had 4 previous miscarriages. She denies renal calculi or glaucoma. PAST SURGICAL HISTORY: Loop recorder placement in February 2018, tonsillectomy, cholecystectomy, and partial hysterectomy. SOCIAL HISTORY: The patient denies tobacco, alcohol or drug use. She denied sexually transmitted diseases. She is with 2 children and lives in a house with a friend and her 2 children. She is not currently employed. FAMILY HISTORY: The patient's mother is alive with a history of migraine, diabetes mellitus, hypertension, and uterine cancer. Father's history is not known. There is no family history of stroke at young age, multiple sclerosis, seizure or other neurologic disease. REVIEW OF SYSTEMS: Fourteen systems are reviewed and no additional points are identified compared to the review of systems documented in the history and physical. PHYSICAL EXAMINATION: Upon my arrival to the patient's room, she was lying in bed, receptive to the examiner. Affect is normal. She is obese, an accurate historian and appears of stated age. There are no family members at the bedside. VITAL SIGNS: Blood pressure is 128/77, pulse 81, respiratory rate 17, temperature 97.4, weight is 116.7 kg on a 5-foot 1-inch frame. SKIN AND EXTREMITIES: The patient has multiple tattoos. HEAD AND NECK: No tenderness or signs of trauma. Neck is supple without meningeal signs. Arteries are nontender and without bruits. HEART: Regular rate and rhythm. HIGHER CORTICAL FUNCTION: MENTAL STATUS: Patient was alert and oriented to time, place, and person. She was able to name, repeat and read. There was no right left disorientation, finger agnosia, extinction to double simultaneous stimulation or dysarthria. CRANIAL NERVES II THROUGH XII: Pupils are equal and reactive to light symmetrically. No afferent pupillary defect. Visual soria are intact to confrontation. III, IV, : No ptosis. Extraocular movements are full. No nystagmus. V: Pinprick and light touch intact in all 3 divisions. intact. VII: No facial asymmetry or weakness. VIII: Acuity intact to finger rub. IX, X: Palate boston in midline. XI: Limited trapezius strength intact, XII: Tongue protruded midline without fasciculation or atrophy. MOTOR EXAMINATION: There is no pronator drift. Normal bulk and tone are noted in all major muscle groups with no involuntary movements noted. Strength is 5/5 throughout. Sensory intact to pinprick and light touch in all extremities at this time. Reflexes right side is first: Biceps 2,2; brachioradialis 1, 1; triceps 1,1; patella 2 2; ankle 1, 1. Plantar responses flexor bilaterally. Menon's is absent. COORDINATION: [id number], [id number] movements are intact. Rapid alternating movements are symmetric with finger tapping. DIAGNOSTIC TESTING: The patient had a CT scan of the brain completed without contrast in the emergency room, which was read as negative and unchanged compared to previous CT from 09/26/2014. CTA of the head/neck vessels demonstrated no focal hemodynamic stenosis, there was reported to be diminutive appearance of the intracranial arteries as well as the distal internal carotid arteries, radiologist stated "it is not clear if this is related to vasculitis or developmental abnormality". No intracranial aneurysm, neovascularity or beading was reported. There was normal contrast opacification of the venous sinuses. It should be noted the patient has a history of Tavia-Danlos syndrome. MRI of the brain was also read as normal, in particular, there was no evidence of acute ischemia on diffusion-weighted images nor white-matter lesions, and this study was unchanged compared to previous MRI from 09/12/2017. Lab work demonstrates a white blood count of 11.8 with a hemoglobin of 13.7, platelet count 501. Sodium 138, potassium 4.2, BUN 9 with a creatinine of 0.65. Calcium 9.6. ALT 22, AST of 20. Troponin negative. Cholesterol 256 and LDL of 148, HDL of 51. IMPRESSION: 1. Left-sided numbness, subjective left-sided weakness, vertigo, and dysarthria which developed on 10/18/2018 with a concurrent migrainous headache, likely secondary to complicated migraine. The symptoms resolved after 6 to 8 hours, the headache has improved (although not completely resolved), current neurologic examination is nonfocal and CT/MRI of the brain were unrevealing. 2. History of migraine since the patient's teenage years, currently occurring greater than 8 times per month per patient. 3. Depression, maintained on Zoloft. 4. Recurrent syncope, status post loop recorder placement. 5. Thrombocytosis, defer to your expertise. 6. Hyperlipidemia. 7. Fibromyalgia. 8. Tavia-Danlos syndrome. 9. Medical problems including hypertension, asthma, reported seizures and obesity. RECOMMENDATIONS: 1. I discussed the results of the patient's diagnostic testing with her and she expressed understanding. I reassured the patient her neurologic examination is well maintained. 2. In the setting of complicated migraine and history of 4 miscarriages, we will obtain hypercoagulable workup. 3. CTA of the head/neck vessels revealed no focal hemodynamically significant stenosis. 4. Will interrogate the patient's implanted device. 5. Consider initiating statin in the setting of hyperlipidemia. 6. Weight loss and regular exercise program to tolerance is recommended. 7. The patient states Toradol/antiemetic medications have been providing benefit regarding her headache. We will initiate Topamax 25 mg q.h.s. for headache prophylaxis and increase to 50 mg q.h.s. after 1 week. The patient denies history of renal calculi/glaucoma. My neurology coverage ends today, please check with medical staff regarding neurology availability. The patient is aware of this. Thank you for allowing me to participate in care of your patient. MMODL / IJN: [id number] /
--- NOTE | 2018-10-20 16:37 | ECHOF ---
Referral Reason:Thrombus MEASUREMENTS -------- HEIGHT: 154.9 cm WEIGHT: 117.0 kg BP: 118/75 IVSd: 1.0 cm (0.6 - 1.1) LVIDd: 4.0 cm (3.9 - 5.3) LVPWd: 0.8 cm (0.6 - 1.1) IVSs: 1.7 cm LVIDs: 1.9 cm LVPWs: 1.6 cm RVIDd: 1.9 cm (< 3.3) LAESV Index (A-L): 14.17 ml/m Ao Diam: 3.0 cm (2.0 - 3.7) LA Diam: 2.8 cm (2.7 - 3.8) AV Cusp: 1.9 cm (1.5 - 2.6) EPSS: 0.6 cm MV E Gilberto: 0.63 m/s MV DecT: 198 ms MV A Gilberto: 0.75 m/s MV E/A Ratio: 0.84 RAP: 5.00 mmHg RVSP: 28.47 mmHg MV EF SLOPE: 68.18 mm/s (70 - 150) MV EXCURSION: 11.11 mm (> 18.000) FINDINGS -------- Sinus rhythm. This was a technically good study. The left ventricular size is normal. Left ventricular wall thickness is normal. Overall left vent ricular systolic function is normal with, an EF between 60 - 65 %. The right ventricle is normal in size. The left atrial size is normal. Normal LA size by volume 22+/-6 ml/m2. The right atrial size is normal. Interatrial and interventricular septum intact. The aortic valve is trileaflet and appears structurally normal. The mitral valve is normal. Mild mitral annular calcification present. There is trace mitral regu rgitation. Mild tricuspid regurgitation present. Right ventricular systolic pressure is normal at < 35 mmHg. There is no pulmonic regurgitation present. The aortic root size is normal. Normal inferior vena cava with normal inspiratory collapse consistent with estimated right atrial pre ssure of 5 mmHg. There is no pericardial effusion. CONCLUSIONS -------- 1. Sinus rhythm. 2. This was a technically good study. 3. The left ventricular size is normal. 4. Left ventricular wall thickness is normal. 5. Overall left ventricular systolic function is normal with, an EF between 60 - 65 %. 6. The right ventricle is normal in size. 7. The left atrial size is normal. 8. Normal LA size by volume 22+/-6 ml/m2. 9. The right atrial size is normal. 10. Interatrial and interventricular septum intact. 11. The aortic valve is trileaflet and appears structurally normal. 12. The mitral valve is normal. 13. Mild mitral annular calcification present. 14. There is trace mitral regurgitation. 15. Mild tricuspid regurgitation present. 16. Right ventricular systolic pressure is normal at < 35 mmHg. 17. There is no pulmonic regurgitation present. 18. The aortic root size is normal. 19. Normal inferior vena cava with normal inspiratory collapse consistent with estimated right atrial pressure of 5 mmHg. 20. There is no pericardial effusion. EUCLID OPERATOR: Shereen Boo RDCS
[2018-10-20 17:07] LABS: Rheumatoid Factor 9 IU/mL (0-15)
[2018-10-22 11:59] LABS: Cardiolipin Ab IgA Interp NEGATIVE (NEGATIVE); Cardiolipin Ab IgG Interp NEGATIVE (NEGATIVE); Cardiolipin Ab IgM Interp NEGATIVE (NEGATIVE); Cardiolipin IgA Antibody <0.5 U/mL; Cardiolipin IgM Antibody 0.4 U/mL
[2018-10-22 15:01] LABS: APTT 35 Sec(s) (<43); DRVVT 1:1 Mix 41 Sec(s) (<44); Dilute Russell Viper Venom 46 Sec(s) (<44)
[2018-10-23 11:26] LABS: Anti-Thrombin III Activity 121 % (79-109)
[2018-10-23 11:57] LABS: Protein C (Activity) 147 % (71-138)
[2018-10-27] MEDS ORDERED: TOPIRAMATE 25 MG TAB PO SCH (21:00)
== END 2018-10-20 11:40 | disposition home or self-care (01) ==
LOC: EC 16:26 → 3SCARD 18:33
PROVIDERS: ADMIT Internal Medicine; ATTEND Internal Medicine
DX: G43.109 Migraine with aura, not intractable, without status migrainosus (principal); M79.7 Fibromyalgia; J45.909 Unspecified asthma, uncomplicated; I10 Essential (primary) hypertension; G40.909 Epilepsy, unspecified, not intractable, without status epilepticus; Q79.6 Ehlers-Danlos syndromes; R00.0 Tachycardia, unspecified; R55 Syncope and collapse; E78.5 Hyperlipidemia, unspecified; F41.9 Anxiety disorder, unspecified; F32.9 Major depressive disorder, single episode, unspecified; E66.9 Obesity, unspecified; Z68.42 Body mass index [BMI] 45.0-49.9, adult; Z79.1 Long term (current) use of non-steroidal anti-inflammatories (NSAID); Z79.899 Other long term (current) drug therapy; Z90.49 Acquired absence of other specified parts of digestive tract; Z90.710 Acquired absence of both cervix and uterus; Z95.818 Presence of other cardiac implants and grafts; Z80.49 Family history of malignant neoplasm of other genital organs; Z82.0 Family history of epilepsy and other diseases of the nervous system; Z83.3 Family history of diabetes mellitus; Z82.49 Family history of ischemic heart disease and other diseases of the circulatory system; Z82.3 Family history of stroke
CPT/HCPCS: 96375; 96374; 99285; 36415; 94760; 93005; 93306; 97161; 97165; 85303; 85306; 80061; 80053; 81241; 85652; 84484; 85025; 85610; 85730 ×2; 86431; 85613 ×2; 85300; 86038; 86147; 71046; 70496; 70450; 70498; 70551; G0378 ×3; S0183 ×2; J2765; J1885; Q9967

== ENCOUNTER → 2019-01-22 | Outpatient (CLI) | payer OTHER ==
--- NOTE | 2019-01-22 11:54 | XR ---
EXAMINATION TYPE: XR abdomen 1V DATE OF EXAM: 01/22/2019 COMPARISON: NONE HISTORY: Pain TECHNIQUE: One view abdominal series FINDINGS: The osseous structures are intact. The bowel gas pattern is nonspecific. Mild concentric narrowing o f the hip joint. Surgical clips in the gallbladder fossa. Tiny calcification in the pelvis is too sma ll to characterize. IMPRESSION: 1. Nonspecific abdomen.
--- NOTE | 2019-01-22 11:56 | XR ---
EXAMINATION TYPE: XR chest 2V DATE OF EXAM: 01/22/2019 COMPARISON: NONE TECHNIQUE: PA and lateral views submitted. HISTORY: Abnormal heart rate and pain FINDINGS: The lungs are clear and there is no pneumothorax, pleural effusion, or focal pneumonia. Subcutaneou s device may be related to cardiac recorder. Surgical clips in the abdomen. No overt failure. IMPRESSION: 1. No acute process.
== END | disposition home or self-care (01) ==
LOC: RADXRMAIN 11:06
PROVIDERS: ATTEND Family Medicine
DX: K21.0 Gastro-esophageal reflux disease with esophagitis (principal); R10.31 Right lower quadrant pain; R00.2 Palpitations
CPT/HCPCS: 71046; 74018

== ENCOUNTER → 2021-08-12 | Day surgery (SDC) | payer OTHER ==
[2021-08-11 11:42] VITALS: BMI 43.4
[~2021-08-12] MED LIST changes: -HYDROmorphone 0.5 MG/0.5 ML SYRINGE IVP PRN; -MIDAZOLAM (PF) 2 MG/2 ML VIAL IV PRN; +SODIUM CHLORIDE 0.9% 1,000 ML IV SCH; +SODIUM CHLORIDE 0.9% 500 ML 500 ML IV ONE
[2021-08-12 13:40] VITALS: RESP 16; TEMP 98.8
[2021-08-12 19:47] VITALS: BP 133/67; PULSE 89
--- NOTE | 2021-08-31 20:15 | P.EPPROC ---
- EP Procedure Note Electrophysiology Procedure Note: Diagnosis History of syncope Baseline current EKG shows sinus mechanism normal GA narrow QRS Tilt table test per protocol Baseline blood pressure 119/74 mmHg Baseline heart rate 80 beats a minute She is to upright at an angle of 70 No change in blood pressure Gradual increase in heart rate up to 112 beats a minute At that time the patient seemed to have an altered consciousness with unresponsiveness to verbal stimuli She responded to or rub At the time of apparent altered consciousness her blood pressure is normal heart rate is normal rhythm was normal her blood pressure was 119/89 mmHg She was laid supine Impression Psychogenic syncope Normal twelve-lead EKG According to the tilt notes, patient closed her eyes and head tilted to one side She did not also global stimuli or fingernail pressure Responded slowly to a sternal rub However she did not fall and she was standing upright all through There was no evidence for hypertension Mild sinus tachycardia was noted
== END ==
LOC: CATHEP 11:50
PROVIDERS: ATTEND Internal Medicine Clinical Cardiac Electrophysiology
DX: R55 Syncope and collapse (principal); E78.5 Hyperlipidemia, unspecified; R07.9 Chest pain, unspecified; Z20.822 Contact with and (suspected) exposure to COVID-19; Z79.899 Other long term (current) drug therapy; Z82.49 Family history of ischemic heart disease and other diseases of the circulatory system
CPT/HCPCS: 81025; 87635; 93660

== ENCOUNTER 2022-01-31 08:28 | Day surgery (SDC) | payer OTHER ==
[2022-01-27 12:04] VITALS: BMI 41.0
[~2022-01-31 08:28] MED LIST changes: -SODIUM CHLORIDE 0.9% 500 ML 500 ML IV ONE
[2022-01-31 08:46] VITALS: RESP 18; TEMP 98.2
[2022-01-31] MEDS ORDERED: SODIUM CHLORIDE 0.9% 500 ML 500 ML IV ONE (09:40)
[2022-01-31] MEDS ORDERED: LIDOCAINE 1% INJ 10MG/ML (30 ML VIAL-PF) SQ ONE (09:45)
[2022-01-31] MEDS ORDERED: MIDAZOLAM 2 MG/2 ML VIAL IV ONE (09:46)
--- NOTE | 2022-01-31 10:22 | P.EPPROC ---
- EP Procedure Note Electrophysiology Procedure Note: Procedure: Loop explant under sedation and local anesthesia. Diagnosis: Loop monitor at [facility] Patient was brought to the EP lab in a fasting state. Written informed consent was obtained prior to the procedure. The subcutaneous device was successfully explanted under local anesthesia. Preoperative antibiotics were administered. The wound was closed in layers and dressed per protocol. Result: Successful loop monitor explantation. Patient underwent EP procedure under conscious sedation/moderate sedation, monitoring of the level of consciousness and physiologic parameters including but not limited to vital signs and oxygenation. Patient tolerated the procedure well without any acute complications. Start time: 944 Stop time: 955
[2022-01-31 11:03] VITALS: BP 134/89; PULSE 89
== END 2022-01-31 11:25 | disposition home or self-care (01) ==
LOC: CATHEP 08:28
PROVIDERS: ATTEND Internal Medicine Clinical Cardiac Electrophysiology
DX: Z45.09 Encounter for adjustment and management of other cardiac device (principal); I10 Essential (primary) hypertension; E78.5 Hyperlipidemia, unspecified; Z82.49 Family history of ischemic heart disease and other diseases of the circulatory system
CPT/HCPCS: 33286; J2250; J0690; J2001

== ENCOUNTER → 2023-02-21 | Outpatient (CLI) | payer OTHER ==
--- NOTE | 2023-02-21 14:21 | US ---
EXAMINATION TYPE: US abdomen complete DATE OF EXAM: 02/21/2023 COMPARISON: CT abdomen pelvis 06/08/2018, abdominal ultrasound 04/23/2014 CLINICAL INDICATION: Female, 37 years old with history of R10.84 ABD PAIN; pain gb removed TECHNIQUE: Multiple sonographic images of the abdomen are obtained. FINDINGS: EXAM MEASUREMENTS: Liver Length: 15.6 cm Gallbladder Wall: Surgically absent CBD: .4 cm Spleen: 10.2 cm Right Kidney: 9.5 x 3.8 x 4.1 cm Left Kidney: 9.4 x 4.1 x 3.3 cm [employer] ENGINEER NOTES: Pancreas: Obscured by bowel gas Liver: Increased attenuation Gallbladder: Surgically absent CBD: wnl Spleen: wnl Right Kidney: wnl Left Kidney: wnl Upper IVC: wnl Abd Aorta: wnl The liver demonstrates increased attenuation without focal lesion identified. The intrahepatic porti on of the IVC and proximal abdominal aorta are within normal limits. There is no evidence of choleli thiasis. Common bile duct is unremarkable. The pancreas is obscured by overlying bowel gas. The sp anton is unremarkable. Kidneys are symmetric and free of hydronephrosis. No renal lesions are seen. IMPRESSION: 1. No ultrasound evidence for an acute process. 2. Hepatic steatosis. 3. Postcholecystectomy changes.
== END | disposition home or self-care (01) ==
LOC: RADUSWWP 09:40
PROVIDERS: ATTEND Family Medicine
DX: K76.0 Fatty (change of) liver, not elsewhere classified (principal); Z90.49 Acquired absence of other specified parts of digestive tract
CPT/HCPCS: 76700

== ENCOUNTER 2023-03-14 08:53 | Emergency (ER) | payer OTHER ==
[2023-03-14] MEDS ORDERED: SODIUM CHLORIDE 0.9% 1,000 ML IV STA (09:23)
[2023-03-14] MEDS ORDERED: KETOROLAC 15 MG/ML 1 ML VIAL IVP STA (09:24)
[2023-03-14] MEDS ORDERED: ONDANSETRON 4 MG/2 ML VIAL IVP STA (09:24)
--- NOTE | 2023-03-14 09:26 | ED ---
General Adult HPI - General Chief complaint: Abdominal Pain Stated complaint: Abd Pain Time Seen by Provider: 03/14/23 09:01 Source: patient, RN notes reviewed, old records reviewed Mode of arrival: ambulatory Limitations: no limitations - History of Present Illness Initial comments: 37-year-old female presenting for evaluation of abdominal pain, nausea vomiting and diarrhea. Symptoms have been present for the past several days. She was seen by her primary care provider this morning and sent to the emergency department with request for CT imaging of the abdomen. Patient has had hot and cold symptoms. She denies urinary symptoms. Pain is predominantly in the right lower quadrant. - Related Data Home Medications Medication Instructions Recorded Confirmed Albuterol Sulfate [Proair Hfa] 2 puff INHALATION QID PRN 05/19/14 01/27/22 Lisinopril-Hctz 10-12.5 mg 1 tab PO DAILY 06/12/18 01/31/22 [Zestoretic 10-12.5] Meloxicam 7.5 mg PO DAILY 06/12/18 01/31/22 lisinopriL [Zestril] 10 mg PO DAILY 06/12/18 01/31/22 Dicyclomine [Bentyl] 20 mg PO TID PRN 07/02/18 01/27/22 SUMAtriptan succinate [Imitrex] 100 mg PO DAILY PRN 10/18/18 01/31/22 Sertraline [Zoloft] 50 mg PO DAILY 10/18/18 01/31/22 hydrOXYzine HCL [Atarax] 100 mg PO TID PRN 10/18/18 01/31/22 ALPRAZolam [Xanax] 2 mg PO DIRECTED PRN 08/11/21 01/31/22 Sleeping Pill (Unknown Name) 1 tab PO HS PRN 08/11/21 01/31/22 Topiramate [Topamax] 50 mg PO BID 08/11/21 01/31/22 Gabapentin [Neurontin] 400 mg PO TID 01/27/22 01/31/22 Previous Rx's Medication Instructions Recorded Butalb/Asprin/Caff 50-325-40Mg 1 cap PO Q4HR PRN #20 capsule 10/20/18 [Fiorinal 50-325-40 MG] Allergies Allergy/AdvReac Type Severity Reaction Status Date / Time No Known Allergies Allergy Verified 03/14/23 09:07 Review of Systems ROS Statement: Those systems with pertinent positive or pertinent negative responses have been documented in the HPI. ROS Other: All systems not noted in ROS Statement are negative. Past Medical History Past Medical History: Asthma, Fibromyalgia, Hypertension, Memory Impairment, Seizure Disorder Additional Past Medical History / Comment(s): See Dr Huitron's H&P. Last seizure in 2018. Some memory loss due to seizures and "have had passing out episodes where I wake up don't know where I am or who people are". Migraine headaches. Tavia Danlos Syndrome. Intermittent abdominal pain, "possibly related to either ovarian cyst or cyst on kidney". "Misfiring electrical, has loop recorder but battery History of Any Multi-Drug Resistant Organisms: None Reported Past Surgical History: Cholecystectomy, Hysterectomy, Tonsillectomy Additional Past Surgical History / Comment(s): Loop recorder implant 2017. Past Anesthesia/Blood Transfusion Reactions: No Reported Reaction Past Psychological History: Anxiety Smoking Status: Never smoker Past Alcohol Use History: None Reported Past Drug Use History: None Reported - Past Family History Mother Family Medical History: Cancer Additional Family Medical History / Comment(s): Uterine cancer. General Exam Limitations: no limitations General appearance: alert, in no apparent distress Head exam: Present: atraumatic, normocephalic Eye exam: Present: normal appearance, PERRL ENT exam: Present: normal exam Neck exam: Present: normal inspection. Absent: tenderness, meningismus Respiratory exam: Present: normal lung sounds bilaterally. Absent: respiratory distress, wheezes Cardiovascular Exam: Present: regular rate, normal rhythm GI/Abdominal exam: Present: soft, tenderness. Absent: distended, guarding, rebound Extremities exam: Present: normal inspection, normal capillary refill Neurological exam: Present: alert, oriented X3, CN II-XII intact. Absent: motor sensory deficit Psychiatric exam: Present: normal affect, normal mood Skin exam: Present: warm, intact, diaphoretic. Absent: cyanosis Course Vital Signs 03/14/23 09:07 Temperature 98.3 F Pulse Rate 83 Respiratory 28 H Rate Blood Pressure 148/82 O2 Sat by Pulse 100 Oximetry Medical Decision Making - Medical Decision Making Was pt. sent in by a medical professional or institution (, PA, SHIP FASTENER, urgent care, hospital, or shelter...) When possible be specific @ -[Sent in by primary care Did you speak to anyone other than the patient for history (EMS, parent, family, police, friend...)? What history was obtained from this source @ -No Did you review nursing and triage notes (agree or disagree)? Why? @ -I reviewed and agree with nursing and triage notes Were old charts reviewed (outside hosp., previous admission, EMS record, old EKG, old radiological studies, urgent care reports/EKG's, shelter records)? Report findings @ -No old charts were reviewed Differential Diagnosis (chest pain, altered mental status, abdominal pain women, abdominal pain men, vaginal bleeding, weakness, fever, dyspnea, syncope, headache, dizziness, GI bleed, back pain, seizure, CVA, palpatations, mental health, musculoskeletal)? @ -[Differential Abdominal Pain Women: Appendicitis, Cholecystitis, diverticulosis, ischemic bowel, pancreatitis, hepatitis, UTI, gastroenteritis, AAA, incarcerated hernia, bowel obstruction, constipation, inflammatory bowel, hepatitis, peptic ulcer disease, splenic infarction, perforated viscus, vulvitis, ovarian torsion, PID, kidney stone, placenta abruption, this is not meant to be an all-inclusive list EKG interpreted by me (3pts min.). @ -As above X-rays interpreted by me (1pt min.). @ -None done CT interpreted by me (1pt min.). @ -[CT abdomen and pelvis with IV contrast negative for acute intra-abdominal pathology. U/S interpreted by me (1pt. min.). @ -None done What testing was considered but not performed or refused? (CT, X-rays, U/S, labs)? Why? @ -None What meds were considered but not given or refused? Why? @ -None Did you discuss the management of the patient with other professionals (professionals i.e. Dr., PA, SHIP FASTENER, lab, RT, psych nurse, social media marketing specialist, dairy quality assurance officer, teacher, founder and chief executive officer, case preparer and liner)? Give summary @ -No Was smoking cessation discussed for >3mins.? @ -No Was critical care preformed (if so, how long)? @ -No Were there social determinants of health that impacted care today? How? (Homelessness, low income, unemployed, alcoholism, drug addiction, transportation, low edu. Level, literacy, decrease access to med. care, senior care, re hab)? @ -No Was there de-escalation of care discussed even if they declined (Discuss DNR or withdrawal of care, Hospice)? DNR status @ -No What co-morbidities impacted this encounter? (DM, HTN, Smoking, COPD, CAD, Cancer, CVA, ARF, Chemo, Hep., AIDS, mental health diagnosis, sleep apnea, morbid obesity)? @ -None Was patient admitted / discharged? Hospital course, mention meds given and route, prescriptions, significant lab abnormalities, going to OR and other pertinent info. @ -[37-year-old female with abdominal pain, nausea vomiting diarrhea. Patient has right lower quadrant tenderness on exam and was sent in by primary for CT imaging of the abdomen. This is performed and is negative for acute process, normal appendix. She has normal CBC, normal CMP, negative urinalysis. Patient is stable for discharge at this time with outpatient follow-up. Undiagnosed new problem with uncertain prognosis? @ -No Drug Therapy requiring intensive monitoring for toxicity (Heparin, Nitro, Insulin, Cardizem)? @ -No Were any procedures done? @ -No Diagnosis/symptom? @ -Abdominal pain, vomiting and diarrhea Acute, or Chronic, or Acute on Chronic? @Acute Uncomplicated (without systemic symptoms) or Complicated (systemic symptoms)? @ -default Side effects of treatment? @ -No Exacerbation, Progression, or Severe Exacerbation? @ -No Poses a threat to life or bodily function? How? (Chest pain, [place], AR, pneumonia, PE, COPD, DKA, ARF, appy, cholecystitis, CVA, Diverticulitis, Homicidal, Suicidal, threat to staff... and all critical care pts) @ -Low risk at this time - Lab Data Result diagrams: 03/14/23 09:41 03/14/23 09:41 Lab Results 03/14/23 03/14/23 03/14/23 Range/Units 09:41 09:41 09:41 WBC 8.4 (3.8-10.6) k/uL RBC 5.06 (3.80-5.40) m/uL Hgb 14.7 (11.4-16.0) gm/dL Hct 43.9 (34.0-46.0) % MCV 86.9 (80.0-100.0) fL MCH 29.0 (25.0-35.0) pg MCHC 33.4 (31.0-37.0) g/dL RDW 13.5 (11.5-15.5) % Plt Count 430 (150-450) k/uL MPV 7.3 Neutrophils % 74 % Lymphocytes % 20 % Monocytes % 4 % Eosinophils % 1 % Basophils % 0 % Neutrophils # 6.2 (1.3-7.7) k/uL Lymphocytes # 1.7 (1.0-4.8) k/uL Monocytes # 0.3 (0-1.0) k/uL Eosinophils # 0.1 (0-0.7) k/uL Basophils # 0.0 (0-0.2) k/uL PT 10.5 (10.0-12.5) sec INR 0.9 (<1.2) APTT 24.4 (22.0-30.0) sec Sodium (137-145) mmol/L Potassium (3.5-5.1) mmol/L Chloride (98-107) mmol/L Carbon Dioxide (22-30) mmol/L Anion Gap mmol/L BUN (7-17) mg/dL Creatinine (0.52-1.04) mg/dL Est GFR (CKD-EPI)AfAm (>60 ml/min/1.73 sqM) Est GFR (CKD-EPI)NonAf (>60 ml/min/1.73 sqM) Glucose (74-99) mg/dL Plasma Lactic Acid Aditya (0.7-2.0) mmol/L Calcium (8.4-10.2) mg/dL Total Bilirubin (0.2-1.3) mg/dL AST (14-36) U/L ALT (4-34) U/L Alkaline Phosphatase (38-126) U/L Total Protein (6.3-8.2) g/dL Albumin (3.5-5.0) g/dL Amylase (30-110) U/L Lipase (23-300) U/L Urine Color Light [place] Urine Appearance Slightly Cloudy H (Clear) Urine pH 8.0 (5.0-8.0) Ur Specific [place] 1.025 (1.001-1.035) Urine Protein Trace H (Negative) Urine Glucose (UA) Negative (Negative) Urine Ketones 1+ (Negative) Urine Blood Negative (Negative) Urine Nitrite Negative (Negative) Urine Bilirubin Negative (Negative) Urine Urobilinogen <2.0 (<2.0) mg/dL Ur Leukocyte Esterase Small (Negative) Urine WBC 1 (0-5) /hpf Ur Squamous Epith Cells 45 H (0-4) /hpf Urine Mucus Many H (None) /hpf 03/14/23 03/14/23 Range/Units 09:41 09:41 WBC (3.8-10.6) k/uL RBC (3.80-5.40) m/uL Hgb (11.4-16.0) gm/dL Hct (34.0-46.0) % MCV (80.0-100.0) fL MCH (25.0-35.0) pg MCHC (31.0-37.0) g/dL RDW (11.5-15.5) % Plt Count (150-450) k/uL MPV Neutrophils % % Lymphocytes % % Monocytes % % Eosinophils % % Basophils % % Neutrophils # (1.3-7.7) k/uL Lymphocytes # (1.0-4.8) k/uL Monocytes # (0-1.0) k/uL Eosinophils # (0-0.7) k/uL Basophils # (0-0.2) k/uL PT (10.0-12.5) sec INR (<1.2) APTT (22.0-30.0) sec Sodium 141 (137-145) mmol/L Potassium 3.8 (3.5-5.1) mmol/L Chloride 105 (98-107) mmol/L Carbon Dioxide 21 L (22-30) mmol/L Anion Gap 15 mmol/L BUN 7 (7-17) mg/dL Creatinine 0.72 (0.52-1.04) mg/dL Est GFR (CKD-EPI)AfAm >90 (>60 ml/min/1.73 sqM) Est GFR (CKD-EPI)NonAf >90 (>60 ml/min/1.73 sqM) Glucose 137 H (74-99) mg/dL Plasma Lactic Acid Aditya 1.9 (0.7-2.0) mmol/L Calcium 9.9 (8.4-10.2) mg/dL Total Bilirubin 0.6 (0.2-1.3) mg/dL AST 24 (14-36) U/L ALT 28 (4-34) U/L Alkaline Phosphatase 91 (38-126) U/L Total Protein 7.3 (6.3-8.2) g/dL Albumin 4.3 (3.5-5.0) g/dL Amylase 46 (30-110) U/L Lipase 77 (23-300) U/L Urine Color Urine Appearance (Clear) Urine pH (5.0-8.0) Ur Specific [place] (1.001-1.035) Urine Protein (Negative) Urine Glucose (UA) (Negative) Urine Ketones (Negative) Urine Blood (Negative) Urine Nitrite (Negative) Urine Bilirubin (Negative) Urine Urobilinogen (<2.0) mg/dL Ur Leukocyte Esterase (Negative) Urine WBC (0-5) /hpf Ur Squamous Epith Cells (0-4) /hpf Urine Mucus (None) /hpf Disposition Clinical Impression: Abdominal pain Disposition: HOME SELF-CARE Condition: Fair Instructions (If sedation given, give patient instructions): Abdominal Pain (ED) Is patient prescribed a controlled substance at d/c from ED?: No Referrals: Héctor Barrera DO [Primary Care Provider] - 1-2 days Time of Disposition: 10:48
[2023-03-14 09:50] VITALS: TEMP 98.3
[2023-03-14 09:57] LABS: Basophils % (A) 0 %; Eosinophils # (A) 0.1 k/uL (0-0.7); Eosinophils % (A) 1 %; HCT 43.9 % (34.0-46.0); HGB 14.7 gm/dL (11.4-16.0); Lymphocytes # (A) 1.7 k/uL (1.0-4.8); Lymphocytes % (A) 20 %; MCHC 33.4 g/dL (31.0-37.0); MCV 86.9 fL (80.0-100.0); Mean Platelet Volume 7.3; Monocytes # (A) 0.3 k/uL (0-1.0); Monocytes % (A) 4 %; Neutrophils # (A) 6.2 k/uL (1.3-7.7); Neutrophils % (A) 74 %; Platelet Count 430 k/uL (150-450); RBC 5.06 m/uL (3.80-5.40); RDW 13.5 % (11.5-15.5); WBC 8.4 k/uL (3.8-10.6)
[2023-03-14 10:04] LABS: Appearance,Urine Slightly Cloudy (Clear); Color,Urine Light Orange; Specific Gravity,Urine 1.025 (1.001-1.035)
[2023-03-14 10:05] LABS: Bilirubin,Urine Negative (Negative); Blood,Urine Negative (Negative); Glucose,Urine (UA) Negative (Negative); Ketones,Urine 1+ (Negative); Protein,Urine Trace (Negative)
[2023-03-14 10:06] LABS: Leukocyte Esterase,Urine Small (Negative); Nitrite,Urine Negative (Negative); Urobilinogen,Urine <2.0 mg/dL (<2.0)
[2023-03-14 10:07] LABS: ALT 28 U/L (4-34); AST 24 U/L (14-36); African American GFR (CKD) >90 (>60 ml/min/1.73 sqM); Albumin 4.3 g/dL (3.5-5.0); Alkaline Phosphatase 91 U/L (38-126); Amylase 46 U/L (30-110); Anion Gap 15 mmol/L; Blood Urea Nitrogen 7 mg/dL (7-17); Calcium 9.9 mg/dL (8.4-10.2); Carbon Dioxide 21 mmol/L (22-30); Chloride 105 mmol/L (98-107); Glucose 137 mg/dL (74-99); Lipase 77 U/L (23-300); Non-African American GFR(CKD) >90 (>60 ml/min/1.73 sqM); Potassium 3.8 mmol/L (3.5-5.1); Sodium 141 mmol/L (137-145); Total Bilirubin 0.6 mg/dL (0.2-1.3); Total Protein 7.3 g/dL (6.3-8.2)
[2023-03-14 10:08] LABS: Mucus,Urine Many /hpf; Squamous Epithelial Cell,Urine 45 /hpf (0-4); WBC,Urine 1 /hpf (0-5)
[2023-03-14 10:18] LABS: INR 0.9 (<1.2); Partial Thromboplastin Time 24.4 sec (22.0-30.0); Prothrombin Time 10.5 sec (10.0-12.5)
--- NOTE | 2023-03-14 10:38 | CT ---
EXAMINATION TYPE: CT abdomen pelvis w con DATE OF EXAM: 03/14/2023 COMPARISON: 06/08/18 HISTORY: pain CT DLP: 2093.7 mGycm CONTRAST: CT scan of the abdomen and pelvis is performed without Oral Contrast and with IV Contrast, patient in jected with 100 mL of Isovue 300. FINDINGS: LUNG BASES-: No visible nodule. No infiltrate. LIVER/GB: No space occupying hepatic lesion. Biliary tree is of normal caliber. PANCREAS: No inflammation. No distinct mass. SPLEEN: No splenic enlargement. No lesion seen. ADRENALS: No nodule. No thickening. KIDNEYS/BLADDER: No hydronephrosis. No nephrolithiasis. No distinct renal mass. Urinary bladder g rossly unremarkable. BOWEL: Normal appendix. Normal bowel caliber. No inflammation. GENITAL ORGANS: Hysterectomy changes LYMPH NODES: No greater than 1cm abdominal or pelvic lymph nodes are appreciated. AORTA: No significant abnormality. OSSEOUS STRUCTURES: No significant abnormality is seen. OTHER: No significant additional abnormality is seen. IMPRESSION: 1. Negative
[2023-03-14 11:03] VITALS: BP 132/78; PULSE 80; RESP 18
== END 2023-03-14 10:58 | disposition home or self-care (01) ==
LOC: EC 08:53
DX: R10.31 Right lower quadrant pain (principal); R11.2 Nausea with vomiting, unspecified; R19.7 Diarrhea, unspecified; J45.909 Unspecified asthma, uncomplicated; I10 Essential (primary) hypertension; G40.909 Epilepsy, unspecified, not intractable, without status epilepticus; F41.9 Anxiety disorder, unspecified; Z79.899 Other long term (current) drug therapy; Z90.49 Acquired absence of other specified parts of digestive tract
CPT/HCPCS: 99284; 96374; 96375; 96361; 36415; 80053; 82150; 83605; 83690; 85025; 85610; 85730; 81001; 74177; J2405; J1885; Q9967